=== PATIENT | male | born 1955 | race Caucasian/White ===

== ENCOUNTER 2017-11-12 13:21 | Inpatient (IN) | payer OTHER ==
[~2017-11-12] VITALS: Ht 177.8 cm; Wt 117.0 kg
[~2017-11-12 13:21] MED LIST: AZITHROMYCIN250 MG; BENZONATATE100 MG; PROAIR HFA INH8.5 GM
[2017-11-12] MEDS ORDERED: EPINEPHRINE 0.3 MG/0.3 ML PEN.INJCTR SC STA (13:30)
[2017-11-12] MEDS ORDERED: SODIUM CHLORIDE 0.9% 1000ML 1,000 ML IV STA (13:30)
[2017-11-12] MEDS ORDERED: IPRATROPIUM BROMIDE 0.02% 2.5 ML NEB NEB ONE (13:30)
[2017-11-12] MEDS ORDERED: ALBUTEROL SULF 0.083% NEB SOLN 3 ML NEB NEB STA (13:30)
[2017-11-12] MEDS ORDERED: DEXAMETHASONE SOD PHOS 10 MG/1 ML VIAL IV ONE (13:30)
[2017-11-12] MEDS ORDERED: FAMOTIDINE 20 MG/2 ML VIAL IV STA (13:30)
[2017-11-12] MEDS ORDERED: DIPHENHYDRAMINE HCL INJ 50 MG/ML VIAL IV ONE ×2 (13:30→14:15)
[2017-11-12] MEDS ORDERED: METHYLPREDNISOLONE SOD SUCC 125 MG/2ML VIAL IV ONE (13:30)
[2017-11-12] MEDS ORDERED: DIPHENHYDRAMINE HCL INJ 1 ML ONE (13:40)
[2017-11-12] MEDS ORDERED: METHYLPREDNISOLONE SOD SUCC 125 MG/2ML VIAL ONE (13:40)
[2017-11-12] MEDS ORDERED: EPINEPHRINE HCL INJ 1 MG/ML AMP ONE (13:40)
[2017-11-12] MEDS ORDERED: FAMOTIDINE 20 MG/2 ML VIAL IV ONE (13:41)
[2017-11-12] MEDS ORDERED: SODIUM CHLORIDE 0.9% 1000ML 1,000 ML ONE (13:42)
[2017-11-12] MEDS ORDERED: DIGOXIN250 MCG PO (14:11)
[2017-11-12] MEDS ORDERED: FUROSEMIDE40 MG PO (14:11)
[2017-11-12] MEDS ORDERED: SPIRONOLACTONE25 MG PO (14:11)
[2017-11-12] MEDS ORDERED: GLIMEPIRIDE4 MG PO (14:11)
[2017-11-12] MEDS ORDERED: METFORMIN HCL500 MG PO (14:11)
[2017-11-12] MEDS ORDERED: ATENOLOL50 MG PO (14:11)
[2017-11-12] MEDS ORDERED: SIMVASTATIN40 MG PO (14:11)
[2017-11-12] MEDS ORDERED: LISINOPRIL2.5 MG PO (14:11)
[2017-11-12] MEDS ORDERED: DIPHENHYDRAMINE HCL INJ 50 MG/ML VIAL IV PRN (14:45)
[2017-11-12] MEDS ORDERED: ONDANSETRON HCL INJ 2 MG/ML VIAL IV PRN (14:45)
[2017-11-12] MEDS ORDERED: DEXTROSE 50% SYRINGE 50 ML IV PRN (14:45)
[2017-11-12] MEDS ORDERED: IPRATROPIUM BROMIDE 0.02% 2.5 ML NEB NEB PRN (14:45)
--- NOTE | 2017-11-12 14:48 | Diagnostic Imaging Report ---
PROCEDURE: A single AP view of the chest. COMPARISON: 09/09/13 INDICATIONS: TONGUE SWELLING FINDINGS: Lines/tubes: None. Lungs: Limited by body habitus. The lungs are well inflated. Left mid to lower lung field opacification. Pleura: There is no pneumothorax. Heart and mediastinum: Enlarged cardiac silhouette. Bones: No acute bony abnormality. IMPRESSION: Left mid to lower lung field opacification, representing effusion and/or pneumonia. Dictated by: Toro Emerson M.D. on 11/12/2017 at 14:47 Electronically approved by: Toro Emerson M.D. on 11/12/2017 at 14:47
[2017-11-12 15:48] LABS: BASOPHILS # (AUTO) 0.1 (0.0-0.1); BASOPHILS % 0.7 % (0.0-1.0); EOSINOPHILS # (AUTO) 0.1 (0.0-0.4); EOSINOPHILS % 1.5 % (0.0-6.0); HEMATOCRIT 38.4 % (38.2-49.6); HEMOGLOBIN 12.9 g/dL (14.0-18.0); LYMPHOCYTES # (AUTO) 0.9 (1.0-3.2); LYMPHOCYTES % 13.2 % (18.0-39.1); MEAN CORPUSCULAR HEMOGLOBIN 33.2 pg (28-32); MEAN CORPUSCULAR HGB CONC 33.6 g/dL (31-35); MEAN CORPUSCULAR VOLUME 98.7 fL (81-99); MONOCYTES # (AUTO) 0.9 (0.2-0.8); MONOCYTES % 12.6 % (4.4-11.3); NEUTROPHILS # (AUTO) 5.1 (2.1-6.9); NEUTROPHILS % 71.3 % (38.7-80.0); PLATELET COUNT 144 x10e3/uL (140-360); RED BLOOD COUNT 3.89 x10e6/uL (4.3-5.7); RED CELL DISTRIBUTION WIDTH 12.8 % (11.7-14.4)
[2017-11-12 16:01] LABS: ANION GAP 22.4 mmol/L (8-16); CALCIUM 10.4 mg/dL (8.4-10.2); CREATININE, SERUM 2.34 mg/dL (0.72-1.25)
[2017-11-12 16:06] LABS: POTASSIUM 5.4 mmol/L (3.5-5.1)
[2017-11-12 16:07] LABS: CREATINE KINASE MB 10.1 ng/mL (0-5.0)
[2017-11-12] MEDS: SODIUM CHLORIDE 0.9% 1000ML 1,000 ML IV SCH (16:12)
--- OUTSIDE RECORDS SUMMARY | 2017-11-12 16:32 | XMS REPORT ---
Author [facility] Address Unknown Phone Unavailable Care Team Providers Care Wind Farm Designer Name Role Phone COCO SALO Unavailable Unavailable Problems This patient has no known problems. Allergies, Adverse Reactions, Alerts This patient has no known allergies or adverse reactions. Medications This patient has no known medications. Results Test Description Test Time Test Comments Text Results Atomic Results Result Comments CHEST SINGLE (PORTABLE) [place] [id number] Patient Name: YULISA PURI MR #: [id number] : 1955 Age/Sex: 61/M Req #: [id number] Adm Physician: Ordered by: SALO SEPULVEDA MD, MD Report #: [id number] Location: ER Room/Bed: Procedure: [id number] DX/CHEST SINGLE (PORTABLE) Exam Date: 11/12/17 Exam Time: 1415 REPORT STATUS: Signed PROCEDURE: A single AP view of the chest. COMPARISON: 09/09/13 INDICATIONS: TONGUE SWELLING FINDINGS: Lines/tubes: None. Lungs: Limited by body habitus. The lungs are well inflated. Left mid to lower lung field opacification. Pleura: There is no pneumothorax. Heart and mediastinum: Enlarged cardiac silhouette. Bones: No acute bony abnormality. IMPRESSION: Left mid to lower lung field opacification , representing effusion and/or pneumonia. Dictated by: Toro Emerson M.D. on 11/12/2017 at 14:47 Electronically approved by: Toro Emerson M.D. on 11/12/2017 at 14:47 Dictated By: TORO EMERSON MD [id number] Transcribed By: TIFF on 11/12/17 144 COPY TO: SALO SEPULVEDA
[2017-11-12] MEDS ORDERED: SOD POLYSTYRENE SULFONATE SUSP 15 GM/60 ML BTL PO ONE ×2 (16:45→20:00)
[2017-11-12] MEDS ORDERED: DEXAMETHASONE SOD PHOS INJ 4 MG/ML VIAL IV SCH (17:00)
[2017-11-12] MEDS ORDERED: METHYLPREDNISOLONE SOD SUCC 125 MG/2ML VIAL IV SCH ×2 (18:00)
[2017-11-12] MEDS ORDERED: ENOXAPARIN SOD INJ 40 MG/0.4 ML SYR SC SCH (18:00)
[2017-11-12] MEDS ORDERED: METHYLPREDNISOLONE SOD SUCC 40 MG/ML VIAL IV SCH (18:00)
[2017-11-12] MEDS ORDERED: DIPHENHYDRAMINE HCL 25 MG CAP PO SCH (18:00)
--- NOTE | 2017-11-12 18:13 | History and Physical ---
A patient of [facility] with a history of hypertension, diabetes, chronic atrial fibrillation, venous insufficiency, obstructive sleep apnea treated in the past surgically with success. He had swollen tongue this morning beginning with half the tongue approximate 11 o'clock after taking lisinopril. He has a history of hypertension, venous stasis, chronic kidney disease, atrial fibrillation. No history of heart failure. He had uvulopalatopharyngoplasty. Nonsmoker, no alcohol. 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 IS NOW KNOWN TO BE ALLERGIC TO LISINOPRIL AND OTHER SHERIN INHIBITORS. Routine medications include aspirin, atenolol, digoxin, Lasix, Amaryl, lisinopril, metformin. NOTED SWELLING OF THE TONGUE AND SPITTING UP LARGE QUANTITIES OF SALIVA. He is now improved after Benadryl and steroids and Pepcid. Denies dyspnea. He has a history of hypertension. Denies GI problems. He has venous stasis of the lower extremities. He is diabetic, on oral medications. PHYSICAL EXAMINATION GENERAL: He is a well-developed, bald white male, feeling much better. VITAL SIGNS: Blood pressure 151/63, pulse 47 and irregular, respirations 16, afebrile. HEAD: Tongue is swollen but improved. LUNGS: Clear. HEART: Irregular rhythm. ABDOMEN: Nontender. EXTREMITIES: Stasis changes. Chest x-ray suggests left lower lobe effusion which is likely to be a scar. He has had similar findings in 2013. Will request 2-view chest x-ray, a renal opinion due to elevated creatinine. Discontinue lisinopril, ask Pharmacy to instruct with regard to avoidance of SHERIN inhibitors. Decrease corticosteroids. Monitor overnight. Thank you for this kind referral. Job#: [id number] CAROLYN
[2017-11-12] MEDS: INSULIN REGULAR, HUMAN 100 UNIT/1 ML 3ML VIAL SQ SCH ×2 (18:30→21:45)
[2017-11-12] MEDS ORDERED: ASPIRIN 81 MG CHEW TAB PO ONE (18:30)
[2017-11-12 19:24] LABS: ALBUMIN 4.1 g/dL (3.5-5.0); ALBUMIN/GLOBULIN RATIO 1.1 (0.8-2.0); ANION GAP 20.6 mmol/L (8-16); CALCIUM 9.7 mg/dL (8.4-10.2); CREATININE, SERUM 2.39 mg/dL (0.72-1.25)
[2017-11-12 19:27] LABS: POTASSIUM 6.6 mmol/L (3.5-5.1)
[2017-11-12 19:30] LABS: CREATINE KINASE MB 7.3 ng/mL (0-5.0)
[2017-11-12] MEDS ORDERED: SODIUM BICARBONATE 8.4% INJ 50 ML SYR IV STA (19:34)
[2017-11-12] MEDS ORDERED: DEXTROSE 50% SYRINGE 50 ML IV ONE (20:00)
[2017-11-12] MEDS ORDERED: INSULIN REGULAR, HUMAN 100 UNIT/1 ML 3ML VIAL IV ONE (20:00)
[2017-11-12] MEDS ORDERED: CALCIUM GLUCONATE 10% INJ 4.65 MEQ in SODIUM CHLORIDE 0.9% 50ML 50 ML IV ONE (20:00)
[2017-11-12] MEDS ORDERED: ALBUTEROL SULF 0.083% NEB SOLN 3 ML NEB NEB ONE (20:00)
[2017-11-12] MEDS: DIPHENHYDRAMINE HCL 25 MG CAP PO SCH (20:00)
[2017-11-12] MEDS: METHYLPREDNISOLONE SOD SUCC 40 MG/ML VIAL IV SCH (20:00)
[2017-11-12] MEDS ORDERED: LACTULOSE SYRUP 20 GM/30 ML UDC PO ONE (20:45)
[2017-11-12 20:59] LABS: FREE THYROXINE INDEX 1.8702 (1.4-3.8); THYROID STIMULATING HORMONE 1.517 uIU/mL (0.350-4.940)
[2017-11-12 21:01] LABS: CALCIUM 9.8 mg/dL (8.4-10.2); CREATININE, SERUM 2.42 mg/dL (0.72-1.25)
[2017-11-12 21:15] LABS: ALBUMIN/GLOBULIN RATIO 1.1 (0.8-2.0)
[2017-11-12] MEDS: SOD POLYSTYRENE SULFONATE SUSP 15 GM/60 ML BTL PO SCH (23:13)
[2017-11-13] VITALS (29 sets, daily range): BP systolic 104–178; BP diastolic 36–114
[2017-11-13] MEDS: SODIUM CHLORIDE 0.9% 1000ML 1,000 ML IV SCH ×3 (00:45→17:25)
[2017-11-13 02:19] LABS: INR 1.27; PROTHROMBIN TIME 14.9 seconds (11.9-14.5)
[2017-11-13 02:20] LABS: PARTIAL THROMBOPLASTIN TIME 31.3 seconds (23.8-35.5)
[2017-11-13] MEDS: ALBUTEROL SULF 0.083% NEB SOLN 3 ML NEB NEB SCH ×4 (03:10→19:24)
--- NOTE | 2017-11-13 04:48 | Diagnostic Imaging Report ---
CHEST 2 VIEWS, Technique: CHEST 2 VIEWS Comparison: 11/12/2017 Clinical history: Effusion DISCUSSION: See impression. Motion artifact on lateral view. IMPRESSION: 1. Stable mildly enlarged cardiomediastinal silhouette. 2. Stable small loculated left pleural effusion with rounded opacity which could reflect atelectasis or consolidation. Signed by: Dr Blossom Capellan MD on 11/13/2017 4:45 AM
--- NOTE | 2017-11-13 05:00 | Consultation ---
DATE OF CONSULTATION: November 13, 2017 This is a 61-year-old white gentleman with underlying history of cardiac issues, hypertension, who is followed by Dr. Oviedo and Dr. Troncoso, presented with swelling of his tongue. He denies taking any new medications or eating any shellfish of that nature. He was brought here to the emergency room and found to have significant swelling of the tongue with no respiratory compromise. Was given appropriate medications for the angioedema. Was found to have high potassium. I discussed with Dr. Jorgito Faulkner. Appropriate medications for hyperkalemia was instituted. Repeat potassium was elevated, which is why initial plans were to dialyze the patient. Then repeat potassium came back at 5. He is comfortable laying supine. Swelling of his tongue is remarkably better he claims. ALLERGIES: HE IS APPARENTLY ALLERGIC TO SHERIN INHIBITORS, LISINOPRIL, BUT I BELIEVE THIS IS A NEW ALLERGY. HE WAS ON SHERIN INHIBITORS OF ALDACTONE AND DIGOXIN AT HOME. Here laboratory tests shows abnormal kidney function. Patient denies prior history of any kidney insufficiency, kidney stones or prostate tissues. His labs show a white count of 7.14, hemoglobin 12.9. Creatinine 2.42. Blood sugar is elevated at 403. BNP 103. REVIEW OF SYSTEMS: Positive for cough with phlegm, greenish colored phlegm. Denies fever, chills or chest pains. No nausea or vomiting. SOCIAL HISTORY: Does not smoke or drink. PAST MEDICAL HISTORY: Type 2 diabetes. He also follows with Dr. Troncoso for his cardiac issues. His digoxin level was 2.64. PHYSICAL EXAMINATION GENERAL: Awake, alert and sitting up in no apparent distress. VITALS: Blood pressure 178/90, pulse rate 79, afebrile, respiratory rate 17. HEAD AND NECK: Cornea clear. Mucosa dry. Oral mucosa shows no swelling of the tongue. Neck veins flat. No neck edema noted. No stridor. Patient is very comfortable. LUNGS: Breath sounds are relatively clear. HEART: S1 and S2 audible. ABDOMEN: Otherwise, soft and nontender. LOWER EXTREMITY EXAMINATION: Shows no edema. IMPRESSION AND PLAN 1. Type 2 diabetes. 2. Acute kidney injury. 3. Hyperkalemia. 4. Angioedema of the tongue. Laboratory tests pending. Overall improved with measures taken. Will do a renal workup. Discuss with primary care physician. Digoxin held. Will repeat levels. So far monitor shows no significant electrical issues on ECG. Job#: [id number] RI
[2017-11-13] MEDS: METHYLPREDNISOLONE SOD SUCC 40 MG/ML VIAL IV SCH ×4 (05:42→17:31)
[2017-11-13] MEDS: DIPHENHYDRAMINE HCL 25 MG CAP PO SCH ×4 (05:42→17:31)
[2017-11-13] MEDS: SOD POLYSTYRENE SULFONATE SUSP 15 GM/60 ML BTL PO SCH ×3 (05:45→22:06)
[2017-11-13 06:15] LABS: BASOPHILS % 0.2 % (0.0-1.0); HEMATOCRIT 34.4 % (38.2-49.6); HEMOGLOBIN 11.3 g/dL (14.0-18.0); LYMPHOCYTES # (AUTO) 0.3 (1.0-3.2); LYMPHOCYTES % 4.7 % (18.0-39.1); MEAN CORPUSCULAR HEMOGLOBIN 32.9 pg (28-32); MEAN CORPUSCULAR HGB CONC 32.8 g/dL (31-35); MEAN CORPUSCULAR VOLUME 100.3 fL (81-99); MONOCYTES # (AUTO) 0.1 (0.2-0.8); MONOCYTES % 1.4 % (4.4-11.3); NEUTROPHILS # (AUTO) 5.9 (2.1-6.9); NEUTROPHILS % 92.9 % (38.7-80.0); PLATELET COUNT 109 x10e3/uL (140-360); RED BLOOD COUNT 3.43 x10e6/uL (4.3-5.7); RED CELL DISTRIBUTION WIDTH 12.6 % (11.7-14.4)
[2017-11-13 06:54] LABS: ALBUMIN 3.7 g/dL (3.5-5.0); CALCIUM 9.5 mg/dL (8.4-10.2); CHOL/HDL RATIO 2.4 (3.9-4.7); CREATININE, SERUM 2.2 mg/dL (0.72-1.25); MAGNESIUM 1.7 MG/DL (1.3-2.1); PHOSPHORUS 2.6 MG/DL (2.3-4.7)
[2017-11-13] MEDS: INSULIN REGULAR, HUMAN 100 UNIT/1 ML 3ML VIAL SQ SCH ×4 (07:30→20:32)
[2017-11-13] MEDS: FAMOTIDINE 20 MG TAB PO SCH ×2 (07:30→16:30)
[2017-11-13] MEDS: GLIMEPIRIDE 2 MG TAB PO SCH ×2 (07:46→17:00)
[2017-11-13] MEDS ORDERED: SOD POLYSTYRENE SULFONATE SUSP 15 GM/60 ML BTL PO SCH (08:04)
[2017-11-13] MEDS ORDERED: DEXTROSE 50% SYRINGE 50 ML IV SCH (08:04)
[2017-11-13] MEDS ORDERED: LACTULOSE SYRUP 20 GM/30 ML UDC PO SCH (08:15)
[2017-11-13] MEDS ORDERED: INSULIN REGULAR, HUMAN 100 UNIT/1 ML 3ML VIAL SQ SCH (08:15)
[2017-11-13] MEDS ORDERED: DEXTROSE 50% SYRINGE 50 ML IV ONE (08:17)
[2017-11-13] MEDS: AMLODIPINE BESYLATE 5 MG TAB PO SCH (09:00)
[2017-11-13] MEDS ORDERED: ATENOLOL 50 MG TAB PO SCH (09:00)
[2017-11-13] MEDS: ENOXAPARIN SOD INJ 60 MG/0.6 ML SYR SC SCH ×2 (09:00→20:37)
[2017-11-13] MEDS ORDERED: ENOXAPARIN SOD INJ 40 MG/0.4 ML SYR SC SCH (09:00)
[2017-11-13] MEDS ORDERED: FUROSEMIDE 40 MG TAB PO SCH (09:00)
[2017-11-13] MEDS ORDERED: NON-FORMULARY MEDICATION (Glimepiride 4 MG) PO SCH (09:00)
[2017-11-13 10:13] LABS: ANISOCYTOSIS SLIGHT; LYMPHOCYTES % (MANUAL) 7 % (19-48); MONOCYTES % (MANUAL) 2 % (3.4-9.0); NEUTROPHILS % (MANUAL) 91 % (40-74); PLATELET ESTIMATE SLIGHTLY DECREASED; PLATELET MORPHOLOGY COMMENT NORMAL; RBC MORPHOLOGY COMMENT NORMAL
--- NOTE | 2017-11-13 11:34 | Diagnostic Imaging Report ---
EXAM: Renal Ultrasound INDICATION: \S\reese COMPARISON: None TECHNIQUE: Transverse and longitudinal images of the kidneys and bladder were obtained. FINDINGS: Right Kidney: Size: 12.8 x 6.1 x 5.8 cm Echogenicity: Normal Parenchymal thickness: Normal Collecting system: No hydronephrosis Stones: None Cyst/Mass: None Left Kidney: Size: 12.0 x 5.5 x 5.3 cm Echogenicity: Heterogeneous with striated appearance Parenchymal thickness: Thin Collecting system: Moderate hydronephrosis and moderate hydroureter Stones: 1.1 x 0.6 x 0.7 cm echogenic area in the lower pole without shadowing. Cyst/Mass: None Bladder: Decompressed. Right ureteral jet is present. Left ureteral jet is not visualized. Prostate: Not visualized. IMPRESSION: 1. Moderate left hydronephrosis and hydroureter likely represents a distal ureteral stone. No left ureteral jet is visualized in the bladder, indicating obstruction. 2. 1.1 cm echogenic foci in the lower pole of the left kidney, likely another stone. 3. Striated appearance of the left kidney. This may be related to the hydronephrosis. However, superimposed pyelonephritis cannot be excluded. Signed by: Dr. Martinez Tian M.D. on 11/13/2017 11:31 AM
[2017-11-13 14:53] LABS: ANION GAP 17.9 mmol/L (8-16); CALCIUM 9.1 mg/dL (8.4-10.2); CREATININE, SERUM 2.26 mg/dL (0.72-1.25); POTASSIUM 3.9 mmol/L (3.5-5.1)
[2017-11-13 15:03] LABS: MAGNESIUM 1.4 MG/DL (1.3-2.1); PHOSPHORUS 2.6 MG/DL (2.3-4.7)
--- NOTE | 2017-11-13 15:45 | Consultation ---
DATE OF CONSULTATION: CARDIOLOGY CONSULTATION NOTE ATTENDING PHYSICIAN: Dr. Jerry Braga CLINICAL HISTORY: This is a 61-year-old white man with history of hypertension, diabetes, chronic atrial fibrillation, venous insufficiency, COPD, admitted and seen in the emergency room because of lisinopril reaction with tongue swelling and because of bradycardia related to medications including digoxin and atenolol, as well as hyperkalemia with new onset of acute kidney injury. This patient has seen a die cutter apprentice in [place], [place] in the distant past. He was given 2 different diuretics including spironolactone for 20 years and furosemide for 15 years, the reason for these were apparently because of venous insufficiency rather than congestive heart failure. An echocardiogram was done in 2013 showing ejection fraction 52%. There is no previous history of chronic kidney disease. There is history of hypertension for which he took lisinopril for many years, apparently he has not had this reaction until now. The patient was taking Coumadin in the past for atrial fibrillation, but this was discontinued for unclear reasons. He does not have any significant bleeding issues. MEDICATIONS AT HOME: Includes: 1. Digoxin 0.25 mg every day. 2. Lisinopril 2.5 mg every day. 3. Metformin 500 mg b.i.d. 4. Spironolactone 25 mg every day. 5. Atenolol 50 mg every day. 6. Lasix 40 mg every day. 7. Glimepiride 4 mg p.o. b.i.d. 8. Simvastatin 40 mg p.o. every day. 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 was in the . He rarely drinks. He is retired for the past year. REVIEW OF SYSTEMS: Noncontributory. PHYSICAL EXAMINATION: VITAL SIGNS: He is somewhat overweight. Vital signs are stable otherwise. Heart rate is irregularly irregular approximately 40 to 50 beats per minute. CARDIAC: S1, S2 were irregularly irregular with variable intensive S1. LUNGS: Clear. ABDOMEN: Soft. Bowel sounds were present. EXTREMITIES: Showed stasis changes. LABORATORY STUDIES: The chest x-ray showed left lower lobe effusion. EKG showed atrial fibrillation, possible old anterior wall myocardial infarction, right axis deviation, nonspecific ST changes. The initial potassium was 5.0, repeat was 6.6. Sodium is 133, bicarb is 24, BUN is 47, creatinine 2.4, glucose is 403. IMPRESSION: 1. Possible allergic reaction to lisinopril with swelling of his tongue, although the patient has been taking lisinopril for many, many years. 2. Severe bradycardia, probably due to combination of digoxin toxicity (2.4), atenolol, as well as hyperkalemia. 3. Chronic kidney disease with acute kidney injury with volume depletion due to double diuretics. 4. Venous insufficiency, treated with 2 diuretics. 5. Volume depletion due to combination of diuretics. 6. Possible old anterior wall myocardial infarction by electrocardiogram, but echocardiogram in 2013 was read as negative, ejection fraction 52%. 7. Hyperkalemia due to combination of lisinopril and spironolactone as well as chronic and acute kidney disease. 8. Diabetes, poorly controlled. 9. Hyponatremia, possibly also due to lisinopril, spironolactone, and diuretics. 10. Left lower lobe effusion. 11. Digoxin toxicity. RECOMMENDATION: Discontinue atenolol, digoxin, diuretics. Fluid replacement, correct hyperkalemia. Consider for the bradycardia. Repeat echocardiogram. Hopefully, we can avoid dialysis. Job#: [id number] cc:JERRY BRAGA MD DR.
[2017-11-13 20:55] LABS: CREATINE KINASE MB 10.1 ng/mL (0-5.0)
[2017-11-13] MEDS ORDERED: SIMVASTATIN 40 MG TAB PO SCH (21:00)
[2017-11-14] VITALS (13 sets, daily range): BP systolic 107–165; BP diastolic 36–92
[2017-11-14] MEDS: ALBUTEROL SULF 0.083% NEB SOLN 3 ML NEB NEB SCH ×2 (02:50→07:00)
[2017-11-14] MEDS: SODIUM CHLORIDE 0.9% 1000ML 1,000 ML IV SCH (04:00)
[2017-11-14 06:21] LABS: HEMATOCRIT 32.8 % (38.2-49.6); HEMOGLOBIN 10.8 g/dL (14.0-18.0); LYMPHOCYTES # (AUTO) 0.2 (1.0-3.2); LYMPHOCYTES % 3.3 % (18.0-39.1); MEAN CORPUSCULAR HEMOGLOBIN 33.2 pg (28-32); MEAN CORPUSCULAR HGB CONC 32.9 g/dL (31-35); MEAN CORPUSCULAR VOLUME 100.9 fL (81-99); MONOCYTES # (AUTO) 0.2 (0.2-0.8); MONOCYTES % 2.5 % (4.4-11.3); NEUTROPHILS # (AUTO) 6.3 (2.1-6.9); NEUTROPHILS % 93.5 % (38.7-80.0); PLATELET COUNT 95 x10e3/uL (140-360); RED BLOOD COUNT 3.25 x10e6/uL (4.3-5.7); RED CELL DISTRIBUTION WIDTH 12.5 % (11.7-14.4)
[2017-11-14] MEDS: DIPHENHYDRAMINE HCL 25 MG CAP PO SCH ×3 (06:36→12:20)
[2017-11-14] MEDS: SOD POLYSTYRENE SULFONATE SUSP 15 GM/60 ML BTL PO SCH ×2 (06:36→13:09)
[2017-11-14] MEDS: METHYLPREDNISOLONE SOD SUCC 40 MG/ML VIAL IV SCH ×3 (06:36→12:20)
[2017-11-14 06:46] LABS: ALBUMIN 3.4 g/dL (3.5-5.0); ALBUMIN/GLOBULIN RATIO 1.2 (0.8-2.0); ANION GAP 16.9 mmol/L (8-16); CALCIUM 8.7 mg/dL (8.4-10.2); CREATININE, SERUM 1.98 mg/dL (0.72-1.25); POTASSIUM 3.9 mmol/L (3.5-5.1)
[2017-11-14] MEDS: INSULIN REGULAR, HUMAN 100 UNIT/1 ML 3ML VIAL SQ SCH ×2 (07:08→12:20)
[2017-11-14] MEDS: FAMOTIDINE 20 MG TAB PO SCH (07:25)
[2017-11-14] MEDS: GLIMEPIRIDE 2 MG TAB PO SCH (07:32)
[2017-11-14] MEDS: ENOXAPARIN SOD INJ 60 MG/0.6 ML SYR SC SCH (09:00)
[2017-11-14] MEDS: AMLODIPINE BESYLATE 5 MG TAB PO SCH (09:00)
[2017-11-14 12:52] LABS: LYMPHOCYTES % (MANUAL) 4 % (19-48); MONOCYTES % (MANUAL) 1 % (3.4-9.0); NEUTROPHILS % (MANUAL) 95 % (40-74); PLATELET ESTIMATE SLIGHTLY DECREASED; PLATELET MORPHOLOGY COMMENT NORMAL; RBC MORPHOLOGY COMMENT NORMAL
[2017-11-14] MEDS ORDERED: RIVAROXABAN 20 MG TABLET PO SCH (14:15)
[2017-11-14] MEDS ORDERED: XARELTO20 MG PO (14:21)
--- NOTE | 2017-11-14 15:28 | Cardiology Report ---
DATE OF STUDY: ECHOCARDIOGRAM M-MODE: Dilated left atrium. Left ventricular hypertrophy. Normal left ventricular contractility. Normal mitral and aortic valves. No pericardial effusion. SECTOR SCAN: Dilated left and right atrium. Mild left ventricular hypertrophy. Normal contractility. Aortic sclerosis of the mitral valve annulus. Normal tricuspid valves. No pericardial effusion. CARDIAC DOPPLER STUDY WITH COLOR: One plus aortic regurgitation. Trace mitral and tricuspid regurgitation. One plus pulmonic regurgitation. CONCLUSIONS 1. Aortic sclerosis with mild aortic regurgitation. 2. Trace mitral regurgitation with dilated left atrium. 3. Sclerosis of the mitral valve annulus. 4. Trace tricuspid regurgitation with mild pulmonic regurgitation with dilated right atrium without significant pulmonary hypertension. Pulmonary artery systolic pressure estimated at 33 mmHg. 5. Left ventricular hypertrophy with ejection fraction of approximately 55%. Job#: [id number] RI cc:LIU BRAGA MD
[2017-11-14] MEDS ORDERED: PREDNISONE20 MG PO ×2 (17:12→17:14)
[2017-11-14] MEDS ORDERED: BENADRYL25 M1 PO (17:17)
[2017-11-15] MEDS ORDERED: RIVAROXABAN 15 MG TABLET PO SCH (09:00)
--- NOTE | 2017-11-15 20:52 | Discharge Summary ---
FINAL DIAGNOSES 1. Angioedema. 2. Hyperkalemia due to medications, spironolactone and lisinopril. 3. Atrial fibrillation. 4. Acute kidney injury. 5. Type-2 diabetes mellitus. ADMISSION HISTORY AND HOSPITAL COURSE: Mr. Wong is a 61-year-old male, who presented to the emergency room with the complaint of swelling of the tongue. Patient was diagnosed with angioedema. Lisinopril was stopped. Patient started feeling better. After it was stopped, he was initially observed in ICU. Cardiology and nephrology were consulted as patient was hyperkalemic on admission as well and also had renal failure with creatinine of 2.34, which improved. Nephrology was consulted. Did recommend patient can be discharged home. Cardiology also cleared the patient. I have discontinued the spironolactone, Lasix, lisinopril, and metformin. He will follow up with Dr. Oviedo in 2-3 weeks. DISCHARGE MEDICATION LIST: Reviewed. MARLY CHAVEZ MD Job#: [id number] CQ
== END 2017-11-14 17:46 | disposition home or self-care (01) | DRG 916 ==
LOC: ER 13:21 → ERHOLD 16:29 → OBSVTOIN 20:12 → ICU 11-13 02:15 → MED/SURG 11-14 10:21
PROVIDERS: ADMIT Internal Medicine Pulmonary Disease; ATTEND Internal Medicine Pulmonary Disease
DX: T78.3XXA Angioneurotic edema, initial encounter (principal); E11.22 Type 2 diabetes mellitus with diabetic chronic kidney disease; N17.9 Acute kidney failure, unspecified; E11.65 Type 2 diabetes mellitus with hyperglycemia; N18.3 Chronic kidney disease, stage 3 (moderate); E87.1 Hypo-osmolality and hyponatremia; T46.4X5A Adverse effect of angiotensin-converting-enzyme inhibitors, initial encounter; T50.0X5A Adverse effect of mineralocorticoids and their antagonists, initial encounter; Y92.009 Unspecified place in unspecified non-institutional (private) residence as the place of occurrence of the external cause; E87.5 Hyperkalemia; I12.9 Hypertensive chronic kidney disease with stage 1 through stage 4 chronic kidney disease, or unspecified chronic kidney disease; I48.2 Chronic atrial fibrillation; Z79.01 Long term (current) use of anticoagulants; J44.9 Chronic obstructive pulmonary disease, unspecified; Z79.52 Long term (current) use of systemic steroids; I87.2 Venous insufficiency (chronic) (peripheral); E66.3 Overweight; Z68.37 Body mass index [BMI] 37.0-37.9, adult; T46.0X1A Poisoning by cardiac-stimulant glycosides and drugs of similar action, accidental (unintentional), initial encounter; R00.1 Bradycardia, unspecified; E78.5 Hyperlipidemia, unspecified
CPT/HCPCS: 36415; 71045; 71046; 76770; 80048; 80053; 80061; 80162; 82550; 82553; 82948; 83615; 83735; 83880; 84100; 84436; 84443; 84479; 84484; 85025; 85610; 85730; 93005; 93306; 94640; 96361; 96372; 99285; J0171; J0610; J1100; J1200; J1650; J2920; J2930; J7030; J7799

== ENCOUNTER 2018-01-01 14:33 | Emergency (ER) | payer OTHER ==
[~2018-01-01] VITALS: Ht 177.8 cm; Wt 117.0 kg
[~2018-01-01 14:33] MED LIST changes: +ATENOLOL50 MG PO; +BENADRYL25 M1 PO; +DIGOXIN250 MCG PO; +FUROSEMIDE40 MG PO; +GLIMEPIRIDE4 MG PO; +LISINOPRIL2.5 MG PO; +METFORMIN HCL500 MG PO; +PREDNISONE20 MG PO; +SIMVASTATIN40 MG PO; +SPIRONOLACTONE25 MG PO; +XARELTO20 MG PO
--- OUTSIDE RECORDS SUMMARY | 2018-01-01 14:37 | XMS REPORT | Continuity of Care Document ---
Author Author [facility] Organization [facility] Address [address] [place] [address] Phone Unavailable Care Team Providers Care Dance Studio Manager Name Role Phone NO, PCP PCP Unavailable Insurance Providers Guarantor Chase Wong Address [address] [place] [address] Email [email or web address] Payer [facility] Policy Number [id number] Subscriber's Name Lisa Wong Relationship 01 Group Name RETIRED Effective Date 17 Advance Directives Directive Response Recorded Date/Time Does the patient have an advance directive? No 11/13/17 3:11am If yes, is advance directive on file with [facility]? No 11/13/17 3:11am If not on file with [facility] will patient provide a copy? No 11/13/17 3:11am Do you have a Directive to Physician? No 11/12/17 3:15pm Do you have a Medical Power of Electrical Lineman? No 11/12/17 3:15pm Do you have an out of hospital Do Not Resuscitate Order? No 11/12/17 3:15pm Do you have any special needs we should be aware of? No 11/12/17 3:15pm Do you have a support person here with you today? Yes 11/12/17 3:15pm Did patient receive Notice of Privacy Practices? Yes 11/12/17 3:15pm Did patient receive patient rights and responsibilities? Yes 11/12/17 3:15pm Problems Medical Problem Onset Date Status Angio-edema Unknown Digoxin toxicity Unknown Medications Current Home Medications Medication Dose Units Route Directions Days Qty Instructions Start Date Diphenhydramine Hcl (Benadryl) 25 Mg Capsule 25 Mg Oral Three Times A Day as needed for Itching Glimepiride 4 Mg Tablet 4 Mg Oral Twice A Day 180 Prednisone 20 Mg Tab 20 Mg Oral Daily Rivaroxaban (Xarelto) 20 Mg Tablet 15 Mg Oral Daily 30 Tab 11/14/17 Simvastatin 40 Mg Tablet 40 Mg Oral Daily 90 Past Home Medications Medication Directions Ordered Status Albuterol Sulfate (Proair Hfa Inhaler*) 8.5 Gm Inh, Discontinued Atenolol 50 Mg Tablet, 50 Mg Oral Daily Discontinued Azithromycin (Z-Pernell) 250 Mg Tablet, Discontinued Benzonatate 100 Mg Capsule, Discontinued Digoxin 250 Mcg Tablet, 0.25 Mg Oral Daily Discontinued Furosemide 40 Mg Tablet, 40 Mg Oral Daily Discontinued Lisinopril 2.5 Mg Tablet, 2.5 Mg Oral Daily Discontinued Metformin Hcl 500 Mg Tablet, 500 Mg Oral Twice A Day Discontinued Spironolactone 25 Mg Tablet, 25 Mg Oral Daily Discontinued Social History Social History Problem Response Recorded Date/Time Onset Date Status Hx Psychiatric Problems No 11/13/2017 3:11am Not Applicable Not Applicable Hx Eating Disorder No 09/09/2013 8:30pm Not Applicable Not Applicable Hx Substance Use Disorder No 09/09/2013 8:30pm Not Applicable Not Applicable Hx Depression No 09/09/2013 8:30pm Not Applicable Not Applicable Hx Alcohol Use No 09/09/2013 8:30pm Not Applicable Not Applicable Hx Substance Use Treatment No 09/09/2013 8:30pm Not Applicable Not Applicable Hx Physical Abuse No 09/09/2013 8:30pm Not Applicable Not Applicable Smoking Status Start Date Stop Date Never Smoker Hospital Discharge Instructions No hospital discharge instruction information available. Plan of Care Discharge Date 11/14/17 5:46pm Disposition HOME, SELF-CARE Instructions/Education Provided Diabetes and Diet Prescriptions See Medication Section Referrals YUMIKO (Pulmonary) Order Date: 2 Weeks Entered Date: 11/14/2017 5:24pm JUAN R (Cardiology) Order Date: 1 Week Entered Date: 11/14/2017 5:24pm Additional Instructions/Education DIABETIC DIET ACTIVITY TOLERATED NO ORANGES, BANANAS TAKE MEDICATION PRESCRIBED BMP ON 11/19 RETURN TO EMERGENCY ROOM FOR CHEST PAINS, Functional Status Query Response Date Recorded Assistive Devices None November 13, 2017 3:23am Ambulation Ability Standby Assistance November 13, 2017 3:23am Toileting Ability Minimum Assistance November 14, 2017 2:32pm Allergies, Adverse Reactions, Alerts Allergen Type Severity Reaction Status Last Updated Angiotensin-converting enzyme inhibitor Allergy Severe TONGUE SWELLING Active 11/12/17 Lisinopril Allergy Severe TONGUE SWELLING Active 11/12/17 Immunizations No immunization information available. Vital Signs Acute Vital Signs Vital Response Date/Time Temperature (Fahrenheit) 98.5 degrees F (97.6 - 99.5) 11/14/2017 12:00pm Pulse Pulse Rate (adult) 60 bpm (60 - 90) 11/14/2017 1:14pm Respiratory Rate 18 bpm (12 - 24) 11/14/2017 1:14pm Blood Pressure 165/74 mm Hg 11/14/2017 12:00pm Height 5 ft 10 in 11/12/2017 1:26pm Weight 258 lb 11/13/2017 3:11am Body Mass Index 37.0 kg/m^2 11/13/2017 3:11am Results Laboratory Results Test Name Result Units Flags Reference Collection Date/Time Result Date/ Time Comments White Blood Count 6.69 x10e3/uL 4.8-10.8 11/14/2017 5:55am 11/14/2017 6 :34am Red Blood Count 3.25 x10e6/uL L 4.3-5.7 11/14/2017 5:55am 11/14/2017 6: 34am Hemoglobin 10.8 g/dL L 14.0-18.0 11/14/2017 5:55am 11/14/2017 6:34am Hematocrit 32.8 % L 38.2-49.6 11/14/2017 5:55am 11/14/2017 6:34am Mean Corpuscular Volume 100.9 fL H 81-99 11/14/2017 5:55am 11/14/2017 6: 34am Mean Corpuscular Hemoglobin 33.2 pg H 28-32 11/14/2017 5:552017 6:34am Mean Corpuscular Hemoglobin Concent 32.9 g/dL 31-35 11/14/2017 5:11/14/2017 6:34am Red Cell Distribution Width 12.5 % 11.7-14.4 11/14/2017 5:552017 6:34am Platelet Count 95 x10e3/uL L 140-360 11/14/2017 5:11/14/2017 6: 34am Neutrophils (%) (Auto) 93.5 % H 38.7-80.0 11/14/2017 5:5511/14/2017 6 :34am Lymphocytes (%) (Auto) 3.3 % L 18.0-39.1 11/14/2017 5:11/14/2017 6: 34am Monocytes (%) (Auto) 2.5 % L 4.4-11.3 11/14/2017 5:11/14/2017 6: 34am Eosinophils (%) (Auto) 0.0 % 0.0-6.0 11/14/2017 5:11/14/2017 6: 34am Basophils (%) (Auto) 0.0 % 0.0-1.0 11/14/2017 5:11/14/2017 6:34am IM GRANULOCYTES % 0.7 % 0.0-1.0 11/14/2017 5:11/14/2017 6:34am Neutrophils # (Auto) 6.3 2.1-6.9 11/14/2017 5:11/14/2017 6:34am Lymphocytes # (Auto) 0.2 L 1.0-3.2 11/14/2017 5:11/14/2017 6: 34am Monocytes # (Auto) 0.2 0.2-0.8 11/14/2017 5:11/14/2017 6:34am Eosinophils # (Auto) 0.0 0.0-0.4 11/14/2017 5:5511/14/2017 6:34am Basophils # (Auto) 0.0 0.0-0.1 11/14/2017 5:5511/14/2017 6:34am Absolute Immature Granulocyte (auto 0.05 x10e3/uL 0-0.1 11/14/2017 5: 55am 11/14/2017 6:34am Differential Total Cells Counted 100 11/14/2017 5:55am 11/14/2017 12:52pm Neutrophils % (Manual) 95 % H 40-74 11/14/2017 5:55am 11/14/2017 12: 52pm Lymphocytes % (Manual) 4 % L 19-48 11/14/2017 5:55am 11/14/2017 12:52pm Monocytes % (Manual) 1 % L 3.4-9.0 11/14/2017 5:55am 11/14/2017 12:52pm Platelet Estimate SLIGHTLY DECREASED 11/14/2017 5:55am 11/14/2017 12:52pm Platelet Morphology Comment NORMAL 11/14/2017 5:55am 11/14/2017 12: 52pm Anisocytosis SLIGHT 11/13/2017 6:00am 11/13/2017 10:13am Red Cell Morphology Comment NORMAL 11/14/2017 5:55am 11/14/2017 12: 52pm Prothrombin Time 14.9 seconds H 11.9-14.5 11/13/2017 1:40am 11/13/2017 2 :26am Prothromb Time International Ratio 1.27 11/13/2017 1:40am 2017 2:26am Oral Anticoagulant Therapy INR Values: 1. Low Intensity Therapy 1.5 - 2.0 2. Moderate Intensity Therapy 2.0 - 3.0 3. High Intensity Therapy(1) 2.5 - 3.5 4. High Intensity Therapy(2) 3.0 - 4.0 5. Panic Value INR > 5.0 Activated Partial Thromboplast Time 31.3 seconds 23.8-35.5 11/13/2017 1: 40am 11/13/2017 2:26am Sodium Level 139 mmol/L 136-145 11/14/2017 5:55am 11/14/2017 6:46am Potassium Level 3.9 mmol/L 3.5-5.1 11/14/2017 5:55am 11/14/2017 6:46am Chloride Level 100 mmol/L 98-107 11/14/2017 5:55am 11/14/2017 6:46am Carbon Dioxide Level 26 mmol/L 22-29 11/14/2017 5:55am 11/14/2017 6: 46am Anion Gap 16.9 mmol/L H 8-16 11/14/2017 5:55am 11/14/2017 6:46am Blood Urea Nitrogen 45 mg/dL H 7-26 11/14/2017 5:55am 11/14/2017 6:46am Creatinine 1.98 mg/dL H 0.72-1.25 11/14/2017 5:55am 11/14/2017 6:46am BUN/Creatinine Ratio 23 6-25 11/14/2017 5:55am 11/14/2017 6:46am Estimat Glomerular Filtration Rate 35 ML/MIN L 60- 11/14/2017 5:55am 6:46am Ranges were taken from the National Kidney Disease Education Program and the National Kidney Foundation literature. Reference ranges: 60 or greater: Normal 16-59 (for 3 consecutive months): Chronic kidney disease 15 or less: Kidney failure Glucose Level 220 mg/dL H 74-118 11/14/2017 5:55am 11/14/2017 6:46am Calcium Level 8.7 mg/dL 8.4-10.2 11/14/2017 5:55am 11/14/2017 6:46am Bedside Glucose 322 mg/dL H 70-120 11/14/2017 11:00am 11/14/2017 12: 10pm Meter ID: [id number] Phosphorus Level 2.6 MG/DL 2.3-4.7 11/13/2017 1:33pm 11/13/2017 3:07pm Magnesium Level 1.4 MG/DL 1.3-2.1 11/13/2017 1:33pm 11/13/2017 3:07pm Total Bilirubin 1.4 mg/dL H 0.2-1.2 11/14/2017 5:55am 11/14/2017 6:46am Aspartate Amino Transf (AST/SGOT) 33 IU/L 5-34 11/14/2017 5:55am 2017 6:46am Alanine Aminotransferase (ALT/SGPT) 17 IU/L 0-55 11/14/2017 5:55am 6:46am Lactate Dehydrogenase 225 IU/L H 125-220 11/14/2017 UNK 11/14/2017 3: 29pm Total Protein 6.2 g/dL L 6.5-8.1 11/14/2017 5:55am 11/14/2017 6:46am Albumin 3.4 g/dL L 3.5-5.0 11/14/2017 5:55am 11/14/2017 6:46am Globulin 2.8 g/dL 2.3-3.5 11/14/2017 5:55am 11/14/2017 6:46am Albumin/Globulin Ratio 1.2 0.8-2.0 11/14/2017 5:55am 11/14/2017 6: 46am Alkaline Phosphatase 58 IU/L 40-150 11/14/2017 5:55am 11/14/2017 6: 46am Triglycerides Level 69 MG/DL 0-149 11/13/2017 6:00am 11/13/2017 6:57am Cholesterol Level 176 MD/DL 0-199 11/13/2017 6:00am 11/13/2017 6:57am Less than 200 mg/dL Low Risk 201 - 239 mg/dL Borderline Risk 240 mg/dl and greater High Risk LDL Cholesterol 90 MG/DL 60-130 11/13/2017 6:00am 11/13/2017 6:57am HDL Cholesterol 72 MG/DL H 40-60 11/13/2017 6:00am 11/13/2017 6:57am Cholesterol/HDL Ratio 2.4 L 3.9-4.7 11/13/2017 6:00am 11/13/2017 6: 57am B-Type Natriuretic Peptide 103.2 pg/mL H 0-100 11/12/2017 1:30pm 2017 4:21pm Creatine Kinase 525 IU/L H 30-200 11/13/2017 8:30pm 11/13/2017 8:49pm Creatine Kinase MB 10.10 ng/mL H 0-5.0 11/13/2017 8:30pm 11/13/2017 9: 03pm Troponin I 0.032 ng/mL 0-0.300 11/13/2017 8:30pm 11/13/2017 9:03pm Free Thyroxine Index 1.8702 1.4-3.8 11/12/2017 6:50pm 11/12/2017 9: 01pm Thyroxine (T4) 5.44 ug/dL 4.5-10.9 11/12/2017 6:50pm 11/12/2017 9:01pm Triiodothyronine (T3) Uptake 34.38 % 22.5-37.0 11/12/2017 6:50pm 2017 9:01pm Thyroid Stimulating Hormone (TSH) 1.517 uIU/mL 0.350-4.940 11/12/2017 6: 50pm 11/12/2017 9:01pm Digoxin Level 1.52 ng/mL 0.8-2.0 11/13/2017 1:33pm 11/13/2017 4:29pm Procedures Procedure Status Date Provider(s) X-ray of chest, two views Active 11/13/17 LIU BRAGA MD Ultrasound, renal Active 11/13/17 TAMELA AGUIAR Encounters Encounter Location Arrival/Admit Date Discharge/Depart Date Attending Provider Discharged Inpatient [facility] 11/12/17 8:12pm 11/14/17 5:46pm LIU BRAGA MD
[2018-01-01 15:37] LABS: BASOPHILS % 0.4 % (0.0-1.0); EOSINOPHILS % 0.4 % (0.0-6.0); HEMATOCRIT 27.6 % (38.2-49.6); HEMOGLOBIN 8.8 g/dL (14.0-18.0); LYMPHOCYTES # (AUTO) 0.4 (1.0-3.2); LYMPHOCYTES % 4.9 % (18.0-39.1); MEAN CORPUSCULAR HEMOGLOBIN 31.3 pg (28-32); MEAN CORPUSCULAR HGB CONC 31.9 g/dL (31-35); MEAN CORPUSCULAR VOLUME 98.2 fL (81-99); MONOCYTES # (AUTO) 0.5 (0.2-0.8); MONOCYTES % 6.5 % (4.4-11.3); NEUTROPHILS # (AUTO) 7.2 (2.1-6.9); NEUTROPHILS % 87.1 % (38.7-80.0); RED BLOOD COUNT 2.81 x10e6/uL (4.3-5.7); RED CELL DISTRIBUTION WIDTH 12.9 % (11.7-14.4)
[2018-01-01 15:38] LABS: PLATELET COUNT 94 x10e3/uL (140-360)
[2018-01-01 15:49] LABS: INR 2.19; PROTHROMBIN TIME 22.9 seconds (11.9-14.5)
[2018-01-01 15:50] LABS: PARTIAL THROMBOPLASTIN TIME 37.4 seconds (23.8-35.5)
[2018-01-01 15:56] LABS: ALANINE AMINOTRANSFERASE 25 IU/L (0-55); ALBUMIN 3.3 g/dL (3.5-5.0); ALBUMIN/GLOBULIN RATIO 1.4 (0.8-2.0); ALKALINE PHOSPHATASE 106 IU/L (40-150); ANION GAP 13.7 mmol/L (8-16); BLOOD UREA NITROGEN 12 mg/dL (7-26); BUN/CREATININE RATIO 11 (6-25); CALCIUM 9.1 mg/dL (8.4-10.2); CARBON DIOXIDE 30 mmol/L (22-29); CHLORIDE 101 mmol/L (98-107); CREATININE, SERUM 1.07 mg/dL (0.72-1.25); EST GLOMERULAR FILTRATION RATE > 60 ML/MIN (60-); GLUCOSE 66 mg/dL (74-118); POTASSIUM 3.7 mmol/L (3.5-5.1); SODIUM 141 mmol/L (136-145)
--- NOTE | 2018-01-01 16:00 | Diagnostic Imaging Report ---
PELVIS X-RAY - 1 VIEW HISTORY: \S\fall \S\[id number] \S\1535 \S\Y COMPARISON: None available. FINDINGS: Bones: No acute displaced fracture. Osseous alignment is within normal limits. Joints: The joint spaces are well-maintained. Soft tissues: The soft tissues appear unremarkable. IMPRESSION: No acute radiographic abnormality. Signed by: Dr. Yazmin Mims M.D. on 01/01/2018 3:56 PM
--- NOTE | 2018-01-01 16:01 | Diagnostic Imaging Report ---
LEFT FEMUR X-RAY - 4 VIEWS HISTORY: \S\fall \S\Y COMPARISON: None available. FINDINGS: Bones: No acute displaced fracture. Osseous alignment is within normal limits. Joints: The joint spaces are well-maintained. Soft tissues: Mild vascular calcifications. IMPRESSION: No acute radiographic abnormality. Signed by: Dr. Yazmin Mims M.D. on 01/01/2018 3:57 PM
[2018-01-01] MEDS ORDERED: IOPAMIDOL 370 MG/ML 200 ML INFUS..BTL INJ ONE (17:20)
[2018-01-01] MEDS ORDERED: SODIUM CHLORIDE 0.9% 50ML 50 ML ONE (17:20)
--- NOTE | 2018-01-01 17:47 | Diagnostic Imaging Report ---
ADDENDUM #1 Incidental finding: Calcific tendinopathy of the gluteus meliton insertion at the level of the posterior proximal femur. Signed by: Dr. Yazmin Mims M.D. on 01/04/2018 8:22 AM ORIGINAL REPORT Exam: CT scan of the LEFT Leg, WITHOUT injected contrast. TECHNIQUE: Standard departmental protocols were used. Sagittal and coronal reformatted images were obtained. IV CONTRAST: None COMPLICATIONS: None RADIATION DOSE: Total DLP: 684 mGy*cm Estimated effective dose: (DLP x 0.015 x size factor) mSv CTDIvol has been reviewed. It is below the limits set by the Radiation Protocol Committee (RPC). HISTORY: Status post fall, swelling in the left thigh COMPARISON: Left femur x-ray from 01/01/2018 FINDINGS: Bones: No fractures. Soft Tissues: Diffuse circumferential fat stranding surrounding the subcutaneous fat of the left lower extremity from the inguinal canal to the knee. There is also swelling of the biceps muscle. Small mildly hyperdense suprapatellar effusion measuring 19 Hounsfield units. Mild calcifications of the visualized femoral arteries. IMPRESSION: Small mildly hyperdense suprapatellar effusion and swelling of the quadriceps muscle in the upper thigh may relate to this trauma. No discrete hematoma within the muscles. Diffuse soft tissue swelling and on the subcutaneous fat of the left lower extremity. No acute fractures. Signed by: Dr. Yazmin Mims M.D. on 01/01/2018 5:43 PM
[2018-01-01] MEDS ORDERED: HYDROCODONE/APAP 5MG-325MG TAB PO ONE (18:30)
== END 2018-01-01 18:41 | disposition home or self-care (01) ==
LOC: ER 14:44
DX: S76.112A Strain of left quadriceps muscle, fascia and tendon, initial encounter (principal); S76.812A Strain of other specified muscles, fascia and tendons at thigh level, left thigh, initial encounter; W01.0XXA Fall on same level from slipping, tripping and stumbling without subsequent striking against object, initial encounter
CPT/HCPCS: 36415; 72170; 73552; 73701; 80053; 82948; 85025; 85610; 85730; 99284; Q9967

== ENCOUNTER 2018-03-23 11:20 | Inpatient (IN) | payer OTHER ==
[~2018-03-23] VITALS: Ht 177.8 cm; Wt 153.8 kg
[2018-03-23 12:52] LABS: BASOPHILS % 0.7 % (0.0-1.0); EOSINOPHILS # (AUTO) 0.3 (0.0-0.4); EOSINOPHILS % 5.9 % (0.0-6.0); HEMATOCRIT 32.1 % (38.2-49.6); HEMOGLOBIN 9.7 g/dL (14.0-18.0); LYMPHOCYTES # (AUTO) 0.4 (1.0-3.2); LYMPHOCYTES % 8.7 % (18.0-39.1); MEAN CORPUSCULAR HEMOGLOBIN 27.7 pg (28-32); MEAN CORPUSCULAR HGB CONC 30.2 g/dL (31-35); MEAN CORPUSCULAR VOLUME 91.7 fL (81-99); MONOCYTES # (AUTO) 0.6 (0.2-0.8); MONOCYTES % 12.2 % (4.4-11.3); NEUTROPHILS # (AUTO) 3.3 (2.1-6.9); NEUTROPHILS % 72.1 % (38.7-80.0); PLATELET COUNT 133 x10e3/uL (140-360); RED CELL DISTRIBUTION WIDTH 16.7 % (11.7-14.4)
[2018-03-23 12:56] LABS: INR 2.75; PROTHROMBIN TIME 27.3 seconds (11.9-14.5)
[2018-03-23] MEDS ORDERED: TERAZOSIN HCL5 MG (12:56)
[2018-03-23] MEDS ORDERED: XARELTO15 MG (12:56)
[2018-03-23] MEDS ORDERED: ATENOLOL50 MG (12:56)
[2018-03-23] MEDS ORDERED: ADVAIR 100-501 EACH (12:56)
[2018-03-23 12:57] LABS: PARTIAL THROMBOPLASTIN TIME 45.1 seconds (23.8-35.5)
[2018-03-23 13:06] LABS: ALBUMIN 3.6 g/dL (3.5-5.0); ALBUMIN/GLOBULIN RATIO 1.2 (0.8-2.0); ANION GAP 14.2 mmol/L (8-16); CALCIUM 8.9 mg/dL (8.4-10.2); CREATININE, SERUM 1.66 mg/dL (0.72-1.25); MAGNESIUM 1.9 MG/DL (1.3-2.1); POTASSIUM 4.2 mmol/L (3.5-5.1)
[2018-03-23 13:12] LABS: CREATINE KINASE MB 6.7 ng/mL (0-5.0)
[2018-03-23 13:47] LABS: EOSINOPHILS % (MANUAL) 4 % (0-7); LYMPHOCYTES % (MANUAL) 9 % (19-48); MONOCYTES % (MANUAL) 3 % (3.4-9.0); NEUTROPHILS % (MANUAL) 81 % (40-74)
[2018-03-23 13:48] LABS: PLATELET ESTIMATE ADEQUATE; PLATELET MORPHOLOGY COMMENT NORMAL
[2018-03-23 13:49] LABS: ANISOCYTOSIS SLIGHT; POIKILOCYTOSIS SLIGHT; RBC MORPHOLOGY COMMENT NORMAL
[2018-03-23] MEDS ORDERED: DIATRIZOATE MEGL/DIATRIZOA SOD 30 ML BTL PO ONE (17:21)
[2018-03-23 17:25] LABS: CLARITY,URINE SL CLOUDY (CLEAR); COLOR,URINE YELLOW (YELLOW); KETONES,URINE NEGATIVE (NEGATIVE); LEUKOCYTE ESTERASE ,URINE NEGATIVE (NEGATIVE); NITRITE,URINE NEGATIVE (NEGATIVE); PROTEIN,URINE DIPSTICK 1+ (NEGATIVE); URINE UROBILINOGEN 0.2 mg/dL (0.2 - 1)
[2018-03-23 17:26] LABS: BILIRUBIN,URINE NEGATIVE (NEGATIVE)
[2018-03-23 17:31] LABS: BACTERIA,URINE FEW /HPF; EPITHELIAL CELLS,URINE FEW /LPF; HYALINE CASTS 0-1 (0-1)
[2018-03-23] MEDS ORDERED: DEXTROSE 50% SYRINGE 50 ML IV PRN (17:45)
[2018-03-23] MEDS ORDERED: BUMETANIDE INJ 0.25MG/ML 4ML VIAL IV ONE (18:30)
[2018-03-23 18:41] LABS: CREATININE,URINE RANDOM 158.89 mg/dL (63-166); TOTAL PROTEIN, URINE 47.9 mg/dL (1-14)
[2018-03-23] MEDS: FUROSEMIDE INJ 10 MG/ML 2 ML VIAL IV SCH (18:50)
--- NOTE | 2018-03-23 18:58 | Diagnostic Imaging Report ---
EXAM: CT Abdomen and Pelvis WITHOUT contrast INDICATION: Swollen scrotum. Anasarca. COMPARISON: None. TECHNIQUE: Abdomen and pelvis were scanned utilizing a multidetector helical scanner from the lung base to the pubic symphysis without administration of IV contrast. Absence of intravenous contrast decreases sensitivity for detection of focal lesions and vascular pathology. Coronal and sagittal reformations were obtained. Routine protocol was performed. IV CONTRAST: None. ORAL CONTRAST: Gastrografin and water mixture. RADIATION DOSE: Total DLP: 1485.74 mGy*cm Estimated effective dose: (DLP x 0.015 x size factor) mSv COMPLICATIONS: None FINDINGS: Evaluation limited due to beam hardening artifact due to arms placed over patient's abdomen at the time of the examination due to patient's condition. In addition, limitations due to the lack of contrast. LINES and TUBES: None. LOWER THORAX: Small left pleural effusion with possible split pleura. Left basilar airspace disease possibly atelectasis; findings not well evaluated without contrast medium. Coronary artery calcifications. HEPATOBILIARY: No focal hepatic lesions. No biliary ductal dilation. GALLBLADDER: Small calcified gallstones.. No wall thickening. SPLEEN: No splenomegaly. PANCREAS: No focal masses or ductal dilatation. ADRENALS: No adrenal nodules KIDNEYS/URETERS: Punctate calculi in the lower pole of the left kidney. Moderate dilatation of the left renal pelvis and calyceal system, with normal caliber left ureter suggesting UPJ obstruction. GI TRACT: No abnormal distention, wall thickening, or evidence of bowel obstruction. Appendix is normal. Scattered descending sigmoid colon diverticula without CT evidence of diverticulitis. PELVIC ORGANS/BLADDER: Unremarkable. LYMPH NODES: No lymphadenopathy. VESSELS: There is mild atherosclerotic disease in the aorta and major arterial branches. PERITONEUM / RETROPERITONEUM: Small volume of ascites, predominantly in the perihepatic location. BONES: There are degenerative changes in the lumbar spine. SOFT TISSUES: Bilateral gynecomastia. Anasarca. Bilateral small fat-containing inguinal hernias. IMPRESSION: 1. Small volume ascites. 2. Findings suggestive of left UPJ obstruction. 3. Anasarca. 4. Small volume left pleural effusion and probably left basilar atelectasis versus pneumonia in the proper clinical setting. 5. Colonic diverticulosis without diverticulitis. Signed by: Dr. Yesica Rocha M.D. on 03/23/2018 6:55 PM
--- NOTE | 2018-03-23 19:17 | Diagnostic Imaging Report ---
EXAMINATION: CHEST 2 VIEWS INDICATION: Asthma. Congestive heart failure. \S\ASTHMA \S\[id number] \S\1852 COMPARISON: 11/13/2017 FINDINGS: TUBES and LINES: None. LUNGS: Perihilar peribronchial hazy opacity with ill-defined opacity in the left lung base. PLEURA: Possible left pleural effusion. HEART AND MEDIASTINUM: Cardiomegaly with pulmonary vascular congestion. BONES AND SOFT TISSUES: No acute osseous lesion. Soft tissues are unremarkable. UPPER ABDOMEN: No free air under the diaphragm. IMPRESSION: Findings worrisome for left lower lobe pneumonia. Findings consistent with congestive heart failure. Follow-up imaging is indicated to document clearing. Signed by: Dr. Augustine Briscoe M.D. on 03/23/2018 7:13 PM
[2018-03-23] MEDS ORDERED: BUMETANIDE INJ 0.25 MG/ML 10 ML VIAL ONE (19:59)
[2018-03-23] MEDS ORDERED: SODIUM CHLORIDE 0.9% 100 ML ONE (20:12)
[2018-03-23] MEDS: BUMETANIDE 10 MG in SODIUM CHLORIDE 0.9% 100 ML 60 ML IV SCH (20:41)
[2018-03-23] MEDS: INSULIN LISPRO 100 UNIT/1 ML 3ML VIAL SQ SCH (20:53)
[2018-03-23 21:03] LABS: CREATINE KINASE MB 6.9 ng/mL (0-5.0)
--- NOTE | 2018-03-23 21:11 | Consultation ---
DATE OF CONSULTATION: March 23, 2018 HISTORY: Oewgc-zoc-vrrp-old white gentleman, morbidly obese, who had prior history of sleep apnea and history of asthma, followed by Dr. Penny and now Dr. Oviedo, brought in here with scrotal edema since last 3 days. On further questioning, patient has been gradually gaining weight and gradually has developed increased abdominal girth and circumference with swelling in lower extremity and flank area and difficulty breathing for the last several weeks. He denies any fever and chills. Has history of asthma, hypertension. No apparent documented angioplasty or stenting of the coronaries, but has coronary artery disease, apparently on Xarelto, follows Dr. Troncoso. Has atrial fibrillation. He had a cardiac cath, but according to patient he did not have significant disease. I assume the Xarelto is for the atrial fibrillation. He had sleep apnea. He had a palato-uvular surgery done and a tracheostomy, this was 13 years ago, now he says he is "cured." He has type 2 diabetes. Has been on prednisone at home plus glimepiride. He is on Xarelto, receives terazosin I believe for prostate enlargement. Patient denies any trouble passing urine though. Also on atenolol 50 mg tablets once a day and on Zocor. ALLERGIES: APPARENTLY REPORTED SHERIN INHIBITOR, DIGOXIN, FUROSEMIDE, LISINOPRIL, METFORMIN, AND ALDACTONE. WHEN I SPOKE TO THE PATIENT THE ONLY ALLERGY HE TELLS ME IS SHERIN INHIBITORS. HE DENIES ANY ALLERGY TO LASIX OR ALDACTONE. SOCIAL HISTORY: Patient is , by bedside. Does not smoke or drink. No x-ray done at this point in time. LABORATORY TEST: Shows white count 4.5, hemoglobin 9.7. Sodium 141, potassium 4.2, bicarb 29, creatinine 1.66. Alkaline phosphatase 158. BNP 323. Albumin is 3.6, total protein 6.6. FAMILY HISTORY: Significant for diabetes. PHYSICAL EXAMINATION: GENERAL: Patient is sitting up, morbidly obese gentleman with obvious edema of thighs, lower extremity, scrotum, abdominal wall, and flanks. He is mildly short of breath with oxygen saturation 100% on nasal cannula. His respiratory rate is 24, his pulse rate is 96, his blood pressure is 149/84. HEENT: Head and neck: Cornea clear. Oral mucosa moist. Neck veins not distended. LUNGS: Harsh vesicular breath sounds. Decreased air entry at bases. No rales. HEART: S1, S2 audible. Distant heart sounds. ABDOMEN: Otherwise soft, but firm. EXTREMITIES: Significant abdominal wall, flank, sacral, and lower extremity edema about 3+. IMPRESSION AND PLAN: 1. Diffuse anasarca. 2. Generalized body edema. 3. History of type 2 diabetes. 4. Hypertension. 5. Atrial fibrillation. 6. Multiple comorbidities. 7. History of benign prostatic hypertrophy. Plan on requesting the nurse to place a Lomas catheter. Will send urinalysis. Knee-high MILADYS hoses. Will start Bumex drip and aggressively diurese. Consider stopping atenolol. He has a history of asthma, consider an alternative if it is given for heart rate control. Will give 2 mg Bumex IV STAT and start the patient on 1 mg per hour. The Lasix allergy reported on OCT is inaccurate per patient. Will obtain spot urine protein creatinine ratio to rule out nephrotic range proteinuria or diabetic nephropathy. Has acute kidney injury, possibly chronic, possibly diabetic or hypertensive nephrosclerosis. Discussed with . Discussed with patient. Thank you. Job#: [id number]
[2018-03-23 21:20] VITALS: BP 154/91
[2018-03-23 22:11] VITALS: BP 154/91
[2018-03-23] MEDS: SIMVASTATIN 40 MG TAB PO SCH (23:31)
--- NOTE | 2018-03-23 23:58 | History and Physical ---
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 He has a history of obstructive sleep apnea, underwent UPP for repair. He has a history of angioneurotic edema related to lisinopril. He has a history of intermittent atrial fibrillation, currently anticoagulated. Medications include aspirin; atenolol; Breo, this was changed to Advair because of his insurance; Amaryl; Zocor and terazosin. He has a history of hypertension, paroxysmal atrial fibrillation, diabetes diagnosed in 1992. He has been gaining tremendous amount of weight. PHYSICAL EXAMINATION VITAL SIGNS: Temperature 97.6, pulse 87, blood pressure 123/80. HEAD: Normocephalic, atraumatic. NECK: Trachea midline. LUNGS: Diminished breath sounds. HEART: Regular rhythm. ABDOMEN: Little distended. Ascites is felt to be present. EXTREMITIES: Edematous scrotal edema is noted. Some leg edema. IMPRESSION 1. Anasarca. 2. Congestive heart failure. 3. Chronic kidney disease. 4. Diabetes. 5. Hypertension. 6. Sleep apnea, which he claims as controlled after his uvulopalatopharyngoplasty. Patient has been admitted for diuresis. Job#: [id number] DANIELLE
[2018-03-24] VITALS (7 sets, daily range): BP systolic 141–169; BP diastolic 70–99
[2018-03-24] MEDS: BUMETANIDE 10 MG in SODIUM CHLORIDE 0.9% 100 ML 60 ML IV SCH ×2 (04:30→09:11)
[2018-03-24 05:52] LABS: BASOPHILS % 0.4 % (0.0-1.0); EOSINOPHILS # (AUTO) 0.3 (0.0-0.4); HEMATOCRIT 30.5 % (38.2-49.6); HEMOGLOBIN 9.3 g/dL (14.0-18.0); LYMPHOCYTES # (AUTO) 0.4 (1.0-3.2); LYMPHOCYTES % 7.6 % (18.0-39.1); MEAN CORPUSCULAR HEMOGLOBIN 27.8 pg (28-32); MEAN CORPUSCULAR HGB CONC 30.5 g/dL (31-35); MONOCYTES # (AUTO) 0.7 (0.2-0.8); MONOCYTES % 14.6 % (4.4-11.3); NEUTROPHILS # (AUTO) 3.6 (2.1-6.9); PLATELET COUNT 132 x10e3/uL (140-360); RED BLOOD COUNT 3.35 x10e6/uL (4.3-5.7); RED CELL DISTRIBUTION WIDTH 16.8 % (11.7-14.4)
[2018-03-24] MEDS: FUROSEMIDE INJ 10 MG/ML 2 ML VIAL IV SCH ×2 (06:20→18:21)
[2018-03-24 06:22] LABS: CREATINE KINASE MB 4.7 ng/mL (0-5.0)
[2018-03-24 06:37] LABS: ALBUMIN 3.4 g/dL (3.5-5.0); ALBUMIN/GLOBULIN RATIO 1.2 (0.8-2.0); ANION GAP 14.2 mmol/L (8-16); CALCIUM 9.1 mg/dL (8.4-10.2); CREATININE, SERUM 1.43 mg/dL (0.72-1.25); POTASSIUM 4.2 mmol/L (3.5-5.1)
[2018-03-24 07:04] LABS: EOSINOPHILS % (MANUAL) 7 % (0-7); LYMPHOCYTES % (MANUAL) 15 % (19-48); MONOCYTES % (MANUAL) 14 % (3.4-9.0); NEUTROPHILS % (MANUAL) 62 % (40-74)
[2018-03-24 07:06] LABS: PLATELET ESTIMATE ADEQUATE; PLATELET MORPHOLOGY COMMENT NORMAL; RBC MORPHOLOGY COMMENT NORMAL
[2018-03-24] MEDS ORDERED: RIVAROXABAN 20 MG TABLET PO SCH ×3 (07:30→17:00)
[2018-03-24] MEDS ORDERED: RIVAROXABAN 15 MG TABLET PO SCH (07:30)
[2018-03-24] MEDS: INSULIN LISPRO 100 UNIT/1 ML 3ML VIAL SQ SCH ×4 (07:30→21:00)
[2018-03-24] MEDS ORDERED: SALMETEROL/FLUTICASONE 100/50 INH SCH (08:00)
[2018-03-24] MEDS: TERAZOSIN HCL 5 MG CAP PO SCH (08:23)
[2018-03-24] MEDS: ATENOLOL 50 MG TAB PO SCH (08:23)
[2018-03-24 08:55] LABS: % IRON SATURATION 14 % (15-50); IRON 52 ug/dL (65-175); TOTAL IRON BINDING CAPACITY 367 ug/dL (261-478); TRANSFERRIN 262 mg/dL (174-364)
[2018-03-24] MEDS ORDERED: SIMVASTATIN 40 MG TAB PO SCH (09:00)
--- NOTE | 2018-03-24 13:58 | Consultation ---
DATE OF CONSULTATION: CARDIOLOGY CONSULTATION NOTE ATTENDING PHYSICIAN: Dr. Jerry Oviedo. CLINICAL HISTORY: This is a 62-year-old white man, known to me from previous evaluation, admitted via the emergency room because of testicular swelling of 4 days' duration associated with chronic lower extremity edema. This patient is known to have atrial fibrillation with ejection fraction of 55%. He has history of chronic kidney injury with GFR of approximately 50, creatinine of 1.4. He is treated with Xarelto 15 mg per day. There is history of hypertension and diabetes. He has benign prostatic hypertrophy, treated with terazosin. His albumin is approximately 3.5. He only has 1+ proteinuria. He does have some microhematuria and iron-deficiency anemia. He presents with testicular swelling of 4 days' duration, has chronic lower extremity edema. He started on diuretics. Cardiology consultation requested. PAST MEDICAL HISTORY: Also remarkable for hyperlipidemia, digoxin toxicity, angioedema due to SHERIN inhibitors, especially lisinopril. There is history of hyperbilirubinemia at 1.4 and pneumonia in 2015. PAST SURGICAL HISTORY: Included sleep apnea surgery, hand reconstruction in 1975. FAMILY HISTORY: Father has hypertension and unknown cancer. Mother from natural and diabetes. Brother had hypertension and diabetes. Sister is healthy. PERSONAL AND SOCIAL HISTORY: He was a heavy drinker for approximately 15 years, stopped drinking heavily approximately 10 years ago. ALLERGIES: TO LISINOPRIL WHICH CAUSED ANGIOEDEMA, DIGOXIN, LASIX, METFORMIN, AND SPIRONOLACTONE. REVIEW OF SYSTEMS: Noncontributory. PHYSICAL EXAMINATION GENERAL: He is obese, alert, coherent, appears to be comfortable. CARDIAC: Jugular veins were not distended. S1 and S2 were irregularly irregular, variable intensity of S1. LUNGS: Showed diminished breath sounds. ABDOMEN: Soft. Bowel sounds are present. EXTREMITIES: Showed 1+ to 2+ firm, slightly pitting edema. GENITOURINARY: His testicles are swollen. LABORATORY STUDIES: The white count is 4500, hemoglobin 9.7, platelet count is 133,000. Creatinine is 1.4, BUN is 26, GFR is 50. Urine showed 1+ protein and 1+ blood. INR was 2.75. Albumin is 3.5. IMPRESSION 1. Scrotal swelling of undetermined etiology, consider lymphatic obstruction. 2. Lower extremity peripheral edema, possibly venous insufficiency. 3. Left ventricular ejection fraction is approximately 55%. 4. Chronic atrial fibrillation, on anticoagulants. 5. Diabetes. 6. Hypertension. 7. Hyperlipidemia. 8. Iron-deficiency anemia. 9. Microhematuria. 10. Mild hypoalbuminemia and 1+ proteinuria. 11. History of digoxin toxicity. 12. History of angiotensin-converting enzyme inhibitor, lisinopril-induced angioedema. 13. ALLERGIES TO LASIX, METFORMIN, AND SPIRONOLACTONE. 14. Chronic kidney disease; GFR of 50, creatinine 1.45. 15. Obesity. 16. Possible cirrhosis of the liver, history of heavy alcohol usage. 17. Thrombocytopenia. RECOMMENDATIONS: Workup for cirrhosis of the liver, rule out lymphatic obstruction. Keep Xarelto at 15 mg unless there is worsening of microhematuria. Trial of diuretics. Urology and GI opinion. Job#: [id number] SUB cc:DR. JERRY AGUIAR
[2018-03-24] MEDS: RIVAROXABAN 15 MG TABLET PO SCH (17:25)
--- NOTE | 2018-03-24 18:31 | Diagnostic Imaging Report ---
PROCEDURE:US RETROPERITONEAL ( KIDNEY ). COMPARISON:[facility], CT, CT ABDOMEN/PELVIS WO, 03/23/2018, 18:09. [facility], US, US RETROPERITONEAL ( KIDNEY )., 11/13/2017, 10:16. INDICATIONS:ACUTE TUBULAR NECROSIS TECHNIQUE: Ace-scale and color sonographic images of the bilateral kidneys and bladder where obtained in transverse and longitudinal planes. FINDINGS: Exam limited by patient's large body habitus and inability to change position due to scrotal pain and swelling RIGHT KIDNEY: 11.2 cm, cortex 1.9 cm Cysts: None Solid masses: None Stones: None Hydronephrosis: None Echogenicity: Normal LEFT KIDNEY: Approximately 13.7 cm, cortex 1.2 cm Cysts: 2.5 x 2.0 x 2.8 cm cystic, anechoic lesion in the mid aspect, likely representing a simple cyst. Solid masses: None Stones: None Hydronephrosis: Likely marked left hydronephrosis Echogenicity: Normal Bladder: Lomas catheter in place. Bladder is decompressed. CONCLUSION: 1. Marked left hydronephrosis. 2. No stones or focal lesions. 3. Left renal cortical thinning Esau Herrera M.D. Dictated by: Esau Herrera M.D. on 03/24/2018 at 18:35 Electronically approved by: Esau Herrera M.D. on 03/24/2018 at 18:35
--- NOTE | 2018-03-24 18:34 | Diagnostic Imaging Report ---
PROCEDURE:US CHEST (INCL MEDIASTINUM) COMPARISON:None. INDICATIONS:EFFUSIONS FINDINGS:Sonographic evaluation of the bilateral hemithoraces was performed in transverse diameter, and coronal planes. Examination shows small left pleural effusion. No significant right pleural effusion is identified. CONCLUSION: 1. Small left pleural effusion. 2. No significant right pleural effusion is identified. Esau Herrera M.D. Dictated by: Esau Herrera M.D. on 03/24/2018 at 18:39 Electronically approved by: Esau Herrera M.D. on 03/24/2018 at 18:39
--- NOTE | 2018-03-24 20:08 | Diagnostic Imaging Report ---
Liver-Spleen Scan Clinical information: 62 M with anasarca; HTN; CKD; CHF; diabetes Report: Following intravenous administration of 7.2 mCi of Tc-99 and sulfur colloid, images of the liver and spleen were obtained in multiple projections. Tomographic images of the upper abdomen were also obtained. The liver is reduced in size. The spleen appears normal in size. Distribution of tracer activity is homogeneous throughout the hepatic and splenic parenchyma. No focal abnormalities are identified. Increased tracer activity seen in the bone marrow and lungs. There is no apparent shift of tracer activity from the hepatic parenchyma to the spleen. Impression: 1. No scan evidence of hepatic or splenic masses. 2. Marked hepatocyte dysfunction with reduction in liver size, consistent with cirrhosis. 3. Hypersplenism is not present. Signed by: Dr. Jessica Champion M.D. on 03/24/2018 8:05 PM
[2018-03-24] MEDS: SIMVASTATIN 40 MG TAB PO SCH (22:39)
--- NOTE | 2018-03-24 23:32 | Consultation ---
DATE OF CONSULTATION: March 24, 2018 INITIAL VISIT SERVICE: Urology. ATTENDING PHYSICIAN: Dr. Jerry Oviedo REASON FOR CONSULTATION: Suspected UPJ on the left side and marked genital edema. HISTORY OF PRESENT ILLNESS: This is a 62-year-old patient who was admitted to the hospital for congestive heart failure and marked edema of the lower extremities as well as the genital area. He did have placement of a Lomas catheter. There was no indication of acute urinary retention. PAST MEDICAL HISTORY: Remarkable for: 1. Hyperlipidemia. 2. Digoxin toxicity. 3. Angioedema due to SHERIN inhibitor. 4. Obesity. PAST SURGICAL HISTORY: 1. Sleep apnea surgery. 2. Hand reconstruction in 1975. FAMILY HISTORY: Hypertension and unknown cancer and diabetes. PERSONAL AND SOCIAL HISTORY: Patient was a heavy drinker up to 15 years ago. No use of illicit drugs. No information about smoking. ALLERGIES TO MEDICATIONS: 1. LISINOPRIL. 2. DIGOXIN. 3. LASIX. 4. METFORMIN. 5. SPIRONOLACTONE. REVIEW OF SYSTEMS: Twelve systems reviewed. They are not contributory as far as urology is concerned. The patient has no history of any urological problem. PHYSICAL EXAMINATION: GENERAL: The patient is alert and oriented x3, does not seem to be in acute distress. VITAL SIGNS: Blood pressure 140/78, pulse 90, respirations 20, temperature 97.8. HEAD: Symmetric. EYES: Normal movement. NECK: No JVD. No masses. CHEST: Clear. HEART: Regular. ABDOMEN: Soft. EXTERNAL GENITALIA: Edema. LOWER EXTREMITIES: Edema +2. GENITOURINARY: Edema of the scrotum and penis. Lomas catheter in place. LABORATORY DATA: Sodium 141, potassium 4.2, chloride 101, bicarb 30, creatinine 1.43, BUN 26. Hemoglobin 9.3, white count 5000. Urinalysis unremarkable. Impression of the CT scan is that there is some dilation of the upper collecting system on the left side with normal caliber and this is suspicious for UPJ obstruction. patient has also very small calcification in the left kidney. PLAN: Patient will need to keep the Lomas for now. In the future, he may need cystoscopy and retrograde as part of the assessment of the upper tract. We will follow with you. Thank you for the consult. Job#: [id number]
[2018-03-25] VITALS: BP 144/85
[2018-03-25 04:00] VITALS: BP 135/72
[2018-03-25 05:14] LABS: ALBUMIN 3.4 g/dL (3.5-5.0); ALBUMIN/GLOBULIN RATIO 1.2 (0.8-2.0); ANION GAP 17.7 mmol/L (8-16); CALCIUM 9.3 mg/dL (8.4-10.2); CREATININE, SERUM 1.47 mg/dL (0.72-1.25); MAGNESIUM 1.5 MG/DL (1.3-2.1); PHOSPHORUS 3.8 MG/DL (2.3-4.7); POTASSIUM 3.7 mmol/L (3.5-5.1)
[2018-03-25] MEDS: FUROSEMIDE INJ 10 MG/ML 2 ML VIAL IV SCH ×2 (05:17→18:33)
[2018-03-25] MEDS: BUMETANIDE 10 MG in SODIUM CHLORIDE 0.9% 100 ML 60 ML IV SCH ×3 (05:17→20:30)
[2018-03-25] MEDS: INSULIN LISPRO 100 UNIT/1 ML 3ML VIAL SQ SCH ×4 (07:30→21:29)
[2018-03-25] MEDS: ATENOLOL 50 MG TAB PO SCH (08:27)
[2018-03-25] MEDS: TERAZOSIN HCL 5 MG CAP PO SCH (08:27)
[2018-03-25 08:36] VITALS: BP 138/68
[2018-03-25] MEDS ORDERED: MAGNESIUM HYDROXIDE 30 ML UDC PO PRN (09:30)
[2018-03-25] MEDS ORDERED: IRON SUCROSE 100 MG in SODIUM CHLORIDE 0.9% 100 ML 100 ML IV SCH (11:00)
--- NOTE | 2018-03-25 11:19 | Cardiology Report ---
DATE OF STUDY: ECHOCARDIOGRAM M-MODE: Dilated left atrium. Left ventricular hypertrophy. Normal contractility. Aortic sclerosis and sclerosis of the mitral annulus. No pericardial effusion. SECTOR SCAN: Dilated left and right atrium. Left ventricular hypertrophy. Normal contractility. Ejection fraction is approximately 55%. Aortic valve is mildly sclerotic. Mitral annulus is mildly sclerotic. Normal tricuspid valve. No pericardial effusion. CARDIAC DOPPLER STUDY WITH COLOR: One plus aortic and mitral regurgitation. Trace tricuspid regurgitation. Pulmonary artery systolic pressure estimated at 27 mmHg. CONCLUSIONS 1. Left ventricular hypertrophy with ejection fraction of approximately 55%. 2. Mild mitral regurgitation with moderately dilated left atrium. 3. Trace tricuspid regurgitation with moderately dilated right atrium. 4. Aortic sclerosis with mild aortic regurgitation. 5. No significant pulmonary hypertension. Pulmonary artery systolic pressure estimated at 27 mmHg. Job#: [id number] RI cc:LIU BRAGA MD
[2018-03-25] MEDS: METOLAZONE 5 MG TAB PO SCH (14:46)
[2018-03-25] MEDS ORDERED: IRON DEXTRAN INJ 50 MG in SODIUM CHLORIDE 0.9% 100 ML IV ONE (15:30)
[2018-03-25] MEDS ORDERED: IRON DEXTRAN INJ 500 MG in SODIUM CHLORIDE 0.9% 500ML 500 ML IV PRN (15:30)
[2018-03-25] MEDS ORDERED: DEXAMETHASONE PHOS 10MG INJ 20 MG in SODIUM CHLORIDE 0.9% 50ML 50 ML IV ONE (16:30)
[2018-03-25] MEDS ORDERED: DIPHENHYDRAMINE HCL INJ 25 MG in SODIUM CHLORIDE 0.9% 50ML 50 ML IV ONE (17:00)
[2018-03-25 17:14] VITALS: BP 136/64
[2018-03-25] MEDS ORDERED: FAMOTIDINE INJ 20 MG in SODIUM CHLORIDE 0.9% 50ML 50 ML IV ONE (17:30)
[2018-03-25] MEDS ORDERED: IRON SUCROSE IV ONE (18:00)
[2018-03-25] MEDS ORDERED: SODIUM CHLORIDE 0.9% IV ONE (18:00)
[2018-03-25] MEDS ORDERED: SODIUM CHLORIDE 0.9% 250ML 250 ML ONE (18:19)
[2018-03-25] MEDS: RIVAROXABAN 15 MG TABLET PO SCH (18:33)
[2018-03-25 19:27] VITALS: BP 136/64
[2018-03-25 20:00] VITALS: BP 145/92
[2018-03-25] MEDS ORDERED: IRON SUCROSE 500 MG in SODIUM CHLORIDE 0.9% 500ML 500 ML IV ONE (20:00)
[2018-03-25] MEDS: SIMVASTATIN 40 MG TAB PO SCH (21:29)
[2018-03-26] VITALS (7 sets, daily range): BP systolic 123–167; BP diastolic 68–92
[2018-03-26] MEDS: FUROSEMIDE INJ 10 MG/ML 2 ML VIAL IV SCH (06:32)
[2018-03-26] MEDS: BUMETANIDE 10 MG in SODIUM CHLORIDE 0.9% 100 ML 60 ML IV SCH (06:32)
[2018-03-26 06:36] LABS: ALBUMIN 3.5 g/dL (3.5-5.0); ALBUMIN/GLOBULIN RATIO 1.2 (0.8-2.0); ANION GAP 16.6 mmol/L (8-16); CALCIUM 9.5 mg/dL (8.4-10.2); CREATININE, SERUM 1.84 mg/dL (0.72-1.25); POTASSIUM 3.6 mmol/L (3.5-5.1)
[2018-03-26] MEDS: TERAZOSIN HCL 5 MG CAP PO SCH (07:30)
[2018-03-26] MEDS: ATENOLOL 50 MG TAB PO SCH (07:30)
[2018-03-26] MEDS: INSULIN LISPRO 100 UNIT/1 ML 3ML VIAL SQ SCH ×4 (09:00→21:05)
[2018-03-26] MEDS: METOLAZONE 5 MG TAB PO SCH (09:59)
[2018-03-26] MEDS: DOCUSATE SODIUM 100 MG CAP PO SCH (09:59)
[2018-03-26] MEDS: FUROSEMIDE 40 MG TAB PO SCH ×3 (09:59→21:21)
[2018-03-26] MEDS ORDERED: RIVAROXABAN 15 MG TABLET PO SCH (17:00)
[2018-03-26] MEDS: RIVAROXABAN 15 MG TABLET PO SCH (17:06)
[2018-03-26] MEDS: SIMVASTATIN 40 MG TAB PO SCH (21:00)
[2018-03-27] VITALS (9 sets, daily range): BP systolic 124–157; BP diastolic 58–89
[2018-03-27] MEDS ORDERED: PHYTONADIONE 10 MG/ML AMP SQ STA (00:35)
[2018-03-27] MEDS: INSULIN LISPRO 100 UNIT/1 ML 3ML VIAL SQ SCH ×4 (07:30→21:10)
[2018-03-27] MEDS: TERAZOSIN HCL 5 MG CAP PO SCH (08:52)
[2018-03-27] MEDS: ATENOLOL 50 MG TAB PO SCH (08:53)
[2018-03-27] MEDS: FUROSEMIDE 40 MG TAB PO SCH ×3 (08:53→21:36)
[2018-03-27] MEDS: METOLAZONE 5 MG TAB PO SCH (08:53)
[2018-03-27] MEDS: DOCUSATE SODIUM 100 MG CAP PO SCH (08:53)
[2018-03-27 09:32] LABS: ANION GAP 19.1 mmol/L (8-16); CALCIUM 9.8 mg/dL (8.4-10.2); CREATININE, SERUM 1.95 mg/dL (0.72-1.25); POTASSIUM 3.1 mmol/L (3.5-5.1)
[2018-03-27] MEDS ORDERED: POTASSIUM CHLORIDE 20MEQ/100ML 200 ML IV ONE (15:15)
[2018-03-27] MEDS: RIVAROXABAN 15 MG TABLET PO SCH (17:41)
[2018-03-27] MEDS: SIMVASTATIN 40 MG TAB PO SCH (21:36)
[2018-03-28] VITALS: BP 149/81
[2018-03-28 04:00] VITALS: BP 126/66
[2018-03-28 04:53] LABS: BASOPHILS % 0.5 % (0.0-1.0); EOSINOPHILS # (AUTO) 0.3 (0.0-0.4); EOSINOPHILS % 4.9 % (0.0-6.0); HEMATOCRIT 31.5 % (38.2-49.6); HEMOGLOBIN 9.9 g/dL (14.0-18.0); LYMPHOCYTES # (AUTO) 0.7 (1.0-3.2); LYMPHOCYTES % 11.4 % (18.0-39.1); MEAN CORPUSCULAR HGB CONC 31.4 g/dL (31-35); MEAN CORPUSCULAR VOLUME 85.8 fL (81-99); NEUTROPHILS # (AUTO) 4.1 (2.1-6.9); NEUTROPHILS % 66.5 % (38.7-80.0); PLATELET COUNT 143 x10e3/uL (140-360); RED BLOOD COUNT 3.67 x10e6/uL (4.3-5.7); RED CELL DISTRIBUTION WIDTH 16.4 % (11.7-14.4)
[2018-03-28 05:18] LABS: CALCIUM 9.6 mg/dL (8.4-10.2); CREATININE, SERUM 1.93 mg/dL (0.72-1.25)
[2018-03-28] MEDS: INSULIN LISPRO 100 UNIT/1 ML 3ML VIAL SQ SCH ×4 (07:30→21:00)
[2018-03-28 07:59] VITALS: BP 148/84
[2018-03-28] MEDS: TERAZOSIN HCL 5 MG CAP PO SCH (08:26)
[2018-03-28] MEDS: METOLAZONE 5 MG TAB PO SCH (08:27)
[2018-03-28] MEDS: FUROSEMIDE 40 MG TAB PO SCH (08:27)
[2018-03-28] MEDS: ATENOLOL 50 MG TAB PO SCH (08:27)
[2018-03-28] MEDS: DOCUSATE SODIUM 100 MG CAP PO SCH (08:27)
[2018-03-28] MEDS: CYANOCOBALAMIN 1,000 MCG TAB PO SCH (08:27)
[2018-03-28] MEDS ORDERED: POTASSIUM CHLORIDE 20 MEQ TAB CR PO PRN (08:45)
[2018-03-28] MEDS ORDERED: POTASSIUM CHLORIDE 20 MEQ TAB CR PO ONE (09:10)
[2018-03-28] MEDS ORDERED: ACETAZOLAMIDE 250 MG TAB PO ONE (09:30)
[2018-03-28] MEDS ORDERED: METOLAZONE 5 MG TAB PO SCH (10:00)
[2018-03-28] MEDS ORDERED: FUROSEMIDE INJ 10 MG/ML 4 ML VIAL ONE (10:41)
[2018-03-28 12:20] VITALS: BP 123/56
[2018-03-28 14:03] LABS: FREE T4 (FREE THYROXINE) 1.12 ng/dL (0.9-1.8); THYROID STIMULATING HORMONE 5.426 uIU/mL (0.350-4.940)
--- NOTE | 2018-03-28 15:50 | Consultation ---
DATE OF CONSULTATION: March 28, 2018 ENDOCRINE CONSULTATION PATIENT OF: Dr. Oviedo. HPI: Thank you very much for referring this patient. This is a 62-year-old white male gentleman who is referred to me for evaluation of diabetes mellitus. Patient tells me that he is a known diabetic for almost 30 years and has been on various drugs. Lately, he has been on glimepiride 1 mg twice daily, metformin and was taking insulin in the past. The patient came to the hospital with history of scrotal edema, generalized anasarca. He has longstanding history of chronic atrial fibrillation. He also has history of hyperlipidemia, hypertension. The patient also has sleep apnea. Patient is also anemic. PHYSICAL EXAMINATION GENERAL: Today, the patient is alert, awake, a little bit apprehensive. He is moderate to morbidly obese. VITAL SIGNS: His heart rate is around 78, blood pressure 130/80 mmHg. HEENT: Essentially unremarkable. Thyroid is palpable. Clinically, he is near euthyroid. CHEST: Bilateral vesicular breathing. He has bilateral bronchospasm and basal rales. CARDIAC: First and second heart sound. There is no 3rd or 4th heart sounds. Ejection systolic murmur of grade 2/6. EXTREMITIES: Patient has mild pedal edema and has some evidence of generalized anasarca. His blood sugars have been in the ranges of 46 to 250. His BUN and creatinine is 46 and 1.93. Hemoglobin is 9.9 with hematocrit of 31.5. INR is 2.75. CLINICAL IMPRESSION 1. Diabetes mellitus type 2, uncontrolled with complication. 2. Generalized anasarca. 3. Chronic renal failure. 4. Hypertension. 5. Obstructive pulmonary disease. 6. Anemia. The plan at this time is to do a glycohemoglobin, thyroid function test. Stop the glimepiride and then metformin for now. Patient can be started on sliding scale insulin as well as may be Januvia 50 mg once daily. Thanks for referring this patient. I will be following this patient with you. Job#: [id number] CHANA
[2018-03-28] MEDS: RIVAROXABAN 15 MG TABLET PO SCH (16:52)
[2018-03-28 16:56] VITALS: BP 125/74
--- NOTE | 2018-03-28 19:24 | Diagnostic Imaging Report ---
Renal Scan with Lasix Washout Clinical information: 62 M with CKD; evaluate for left UPJ obstruction Technique: Following intravenous administration of 10 mCi of Tc-99m MAG3, dynamic images of the kidneys in the posterior projection were obtained through 40 minutes. Lasix 40 mg was administered intravenously at 13 minutes post injection of the tracer. Report: Left kidney: Perfusion is not visualized. The kidney has a distorted reniform shape with marked thinning of the renal cortex and scattered cortical defects. Extraction of tracer from the blood pool is markedly decreased. Clearance of tracer from the renal parenchyma is delayed and prolonged. The pelvicalyceal system is moderate to markedly dilated. Some increased pooling of tracer is seen within the pelvicalyceal system but the pelvicalyceal system does not fill to capacity due to the poor function of the kidney. No net drainage of tracer from the pelvicalyceal system is seen prior to administration of Lasix. No washout of tracer from the pelvicalyceal system is seen following administration of Lasix. The renogram curve continues to rise even after Lasix rendering an undefined T-1/2 for Lasix washout. No of tracer is seen within the left ureter. Right kidney: Perfusion to the right kidney is prompt. The right kidney has a rounded reniform shape with smooth contours. The kidney is decreased in overall size. Extraction of tracer by the renal parenchyma is decreased. Clearance of tracer from the renal parenchyma is markedly prolonged and decreased. The pelvicalyceal system is not dilated. No pooling of tracer is seen within the pelvicalyceal system. Drainage of tracer from the pelvicalyceal system cannot be assessed because very little tracer is cleared from the renal parenchyma. No tracer is seen within the right ureter. Differential renal function: The left kidney contributes 18% of total renal function and the right kidney contributes 82% (normal 43-57%). Impression: 1. Marked loss of renal parenchyma in the left kidney with severe chronic obstructive uropathy. This accounts for the decreased differential function of 18%. The differential renal function compares to the right kidney that has more renal parenchyma but severe impairment of tubular function. The remaining renal parenchyma has markedly impaired function. Moderate to marked hydronephrosis is present. Physiologically significant obstruction at the UPJ cannot be assessed because the kidney is too impaired to fill the pelvicalyceal system to capacity. 2. Severe medical renal disease in the right kidney with severe tubular function. No hydronephrosis is present. Obstruction of the UPJ cannot be assessed because no accumulation of tracer is seen in the pelvicalyceal system. 3. The differential function of compares the two kidney, both of which have severely impaired function. The higher right differential renal function reflects greater renal parenchyma mass. Signed by: Dr. Jessica Champion M.D. on 03/28/2018 7:20 PM
[2018-03-28 20:00] VITALS: BP 117/69
[2018-03-28] MEDS: SIMVASTATIN 40 MG TAB PO SCH (22:12)
[2018-03-29] VITALS: BP 123/74
[2018-03-29 04:00] VITALS: BP 116/69
[2018-03-29 05:33] LABS: INR 1.81; PROTHROMBIN TIME 19.7 seconds (11.9-14.5)
[2018-03-29] MEDS: INSULIN LISPRO 100 UNIT/1 ML 3ML VIAL SQ SCH ×2 (07:30→12:00)
[2018-03-29 08:30] VITALS: BP 144/61
[2018-03-29] MEDS: ATENOLOL 50 MG TAB PO SCH (08:30)
[2018-03-29] MEDS: TERAZOSIN HCL 5 MG CAP PO SCH (08:30)
[2018-03-29] MEDS ORDERED: SITAGLIPTIN 100 MG TAB PO SCH (09:00)
[2018-03-29] MEDS ORDERED: FUROSEMIDE 40 MG TAB PO SCH (09:00)
[2018-03-29] MEDS: CYANOCOBALAMIN 1,000 MCG TAB PO SCH (09:05)
[2018-03-29] MEDS: DOCUSATE SODIUM 100 MG CAP PO SCH (09:05)
[2018-03-29] MEDS ORDERED: JANUVIA50 MG PO (09:06)
[2018-03-29] MEDS ORDERED: LASIX40 MG PO (09:06)
[2018-03-29] MEDS ORDERED: VITAMIN B-121000 MCG PO (09:08)
[2018-03-29] MEDS ORDERED: POTASSIUM CHLO20 ME1 PO (09:08)
[2018-03-29] MEDS ORDERED: FUROSEMIDE40 MG PO (10:19)
[2018-03-29] MEDS ORDERED: JANUVIA100 MG PO (10:19)
[2018-03-29] MEDS ORDERED: VITAMIN B-121000 MC1 PO (10:19)
--- NOTE | 2018-03-29 10:22 | Discharge Summary ---
This is a patient of mine admitted with anasarca, progressive edema of the lower extremities and scrotal edema. History of chronic atrial fibrillation followed by Dr. Troncoso, chronically anticoagulated. History of chronic renal failure. History of anemia. Found to have, in addition to renal failure, cirrhosis and anemia, iron deficiency and B12 deficiency. He was also found to have renal failure with essentially nonfunctioning left kidney, also severe medical disease in the right. The risks of Xarelto were discussed with Dr. Troncoso, and he felt that the patient could continue on low-dose Xarelto at a dose of 15 mg. U[address] discussion with Dr. Scott. He felt that addressing the obstructive uropathy was pointless in a nonfunctioning kidney. He did not feel that nephrectomy was indicated. Patient desaturated to 85% on ambulation. Supplemental oxygen will be provided for him. Recurrence of his obstructive sleep apnea is suspected, and a sleep study will be scheduled. In addition, the patient's diabetes was addressed by Dr. Augustine who recommended Januvia 50 mg a day. He was discharged on vitamin B12 orally as his level was quite low at 210, Lasix 40, , Januvia 50, atenolol 50, Advair 100 per 50 for his asthma, Xarelto 15, simvastatin 40, terazosin 5 mg. GI evaluation is planned as an outpatient with Dr. Wale Alcala. Job#: [id number] ELADIO
--- NOTE | 2018-05-11 11:06 | Consultation ---
DATE OF CONSULTATION: CONSULTATION TO: Dr. Jerry Braga. HISTORY OF PRESENT ILLNESS: Mr. Wong is a 62-year-old male who has been referred to me for evaluation of anemia. No history of hematochezia, melena, hematuria, hematemesis or hemoptysis. HISTORY OF PAST ILLNESS: History of hyperlipidemia, history of congestive heart failure, and history of atrial fibrillation. SOCIAL HISTORY: Noncontributory. FAMILY HISTORY: Noncontributory. ALLERGIES: Reported to 1. METFORMIN. 2. LASIX. 3. ALDACTONE. 4. LISINOPRIL. 5. DIGOXIN. 6. ALL SHERIN INHIBITORS. MEDICATIONS: At this time 1. Bumetanide. 2. Atenolol. 3. Simvastatin. 4. Lasix. 5. Terazosin. 6. Rivaroxaban. REVIEW OF SYSTEMS HEENT: Normal. CARDIAC: History of congestive heart failure and history of atrial fibrillation. RESPIRATORY: History of congestive heart failure. GI: Normal. : Urologist is on the case. MUSCULOSKELETAL: Normal. SKIN AND BREAST: Normal. NEUROENDOCRINE: Normal. PHYSICAL EXAMINATION GENERAL: A rather obese male. No adenopathy. HEART: Tachycardic. LUNGS: Show coarse crepitation. ABDOMEN: Obese. RECTAL: Exam deferred. CENTRAL NERVOUS SYSTEM: Could not be examined. LABORATORY DATA: Shows a hemoglobin of 9.3 and hematocrit 30.5. White count is 5000 and platelets of 132,000 with low indices. Sodium 141, potassium 4.2, chloride 101. CO2 30, BUN 26, and creatinine 1.4. Bilirubin 1.6. SGOT 20 and SGPT 7. Alkaline phosphatase 145. IMPRESSION 1. Iron deficiency anemia. 2. Chronic renal failure. 3. Hypoproteinemia. 4. Hypoalbuminemia. 5. Hyperuricemia. 6. Acquired coagulopathy of INR of 2.75 because of Xarelto. 7. Congestive heart failure. 8. Possible bronchial pneumonia by chest x-ray. 9. Ascites. 10. Diverticulosis coli. 11. Gallstones by scan. 12. History of hyperlipidemia. 13. History of diabetes mellitus, insulin dependent. 14. History of atrial fibrillation. 15. SHERIN inhibitor allergies. 16. History of chronic alcoholism. 17. Morbid obesity. PLAN, COMMENTS AND SUGGESTIONS: Hypoproteinemia, hypoalbuminemia, and ascites is highly suggestive of cirrhosis of liver. This could even be cardiac cirrhosis. Suggest ammonia level. Suggest hepatitis profile. Suggest Infed. I will confine myself to hematology only and during this hospitalization, the patient has an insurance which is , which I cannot follow the patient as outpatient. Gastroenterology consultation perhaps as outpatient should also be considered. Job#: [id number] LINK cc:DR. COSME BRAGA
--- OUTSIDE RECORDS SUMMARY | 2018-06-01 21:08 | XMS REPORT | Continuity of Care Document ---
Author Author [facility] Organization [facility] Address [address] [place] [address] Phone Unavailable Care Team Providers Care Legal Support Assistant Name Role Phone LIU BRAGA MD PCP Insurance Providers Guarantor Chase Wong Address [address] [place] [address] Email [email or web address] Payer [facility] Policy Number [id number] Subscriber's Name JudithRocíoLisa C Relationship 01 Group Name RETIRED Effective Date 17 Advance Directives Directive Response Recorded Date/Time Does the patient have an advance directive? No 11/13/17 3:11am If yes, is advance directive on file with [facility]? No 11/13/17 3:11am If not on file with [facility] will patient provide a copy? No 11/13/17 3:11am Do you have a Directive to Physician? No 01/01/18 5:18pm Do you have a Medical Power of Computer Engineer? No 01/01/18 5:18pm Do you have an out of hospital Do Not Resuscitate Order? No 01/01/18 5:18pm Do you have any special needs we should be aware of? No 01/01/18 5:18pm Do you have a support person here with you today? Yes 01/01/18 5:18pm Did patient receive Notice of Privacy Practices? Yes 01/01/18 5:18pm Did patient receive patient rights and responsibilities? Yes 01/01/18 5:18pm Problems Medical Problem Onset Date Status Angio-edema [...] information available. Plan of Care Discharge Date 01/01/18 6:41pm Disposition HOME, SELF-CARE Condition at Discharge Stable Instructions/Education Provided Sprains Forms Provided Work/School Excuse Prescriptions See Medication Section Referrals LIU BRAGA MD Address: [address] [place] [id number] ISRA BIMAL CORTES DO Address: [address] [address] [place] [address] Additional Instructions/Education Elevate the left leg/thigh whenever possible to keep swelling down. Warm compress as needed Functional Status No functional status information available. Allergies, Adverse Reactions, Alerts Allergen Type Severity Reaction Status Last Updated Angiotensin-converting enzyme inhibitor Allergy Severe TONGUE SWELLING Active 11/12/17 Digoxin Allergy Unknown Active 01/01/18 Lisinopril Allergy Severe TONGUE SWELLING Active 11/12/17 Furosemide Allergy Unknown Active 01/01/18 Metformin Allergy Unknown Active 01/01/18 SPIRONLACTONE Allergy Unknown Active 01/01/18 Immunizations No immunization information available. Vital Signs Acute Vital Signs Vital Response Date/Time Temperature (Fahrenheit) 98.5 degrees F (97.6 - 99.5) 11/14/2017 12:00pm Pulse Pulse Rate (adult) 60 bpm (60 - 90) 11/14/2017 1:14pm Respiratory Rate 18 bpm (12 - 24) 11/14/2017 1:14pm Blood Pressure 165/74 mm Hg 11/14/2017 12:00pm Height 5 ft 10 in 01/01/2018 2:49pm Weight 258 lb 01/01/2018 2:49pm Body Mass Index 37.0 kg/m^2 01/01/2018 2:49pm Results Laboratory Results Test Name Result Units Flags Reference Collection Date/Time Result Date/ Time Comments Differential Total Cells Counted 100 11/14/2017 5:55am [...] Comment NORMAL 11/14/2017 5:55am 11/14/2017 12: 52pm Phosphorus Level 2.6 MG/DL 2.3-4.7 11/13/2017 1:33pm 11/13/2017 3:07pm Magnesium Level 1.4 MG/DL 1.3-2.1 11/13/2017 1:33pm 11/13/2017 3:07pm Lactate Dehydrogenase 225 IU/L H 125-220 11/14/2017 UNK 11/14/2017 3: 29pm Triglycerides Level 69 MG/DL 0-149 11/13/2017 6:00am [...] 1.52 ng/mL 0.8-2.0 11/13/2017 1:33pm 11/13/2017 4:29pm White Blood Count 8.31 x10e3/uL 4.8-10.8 01/01/2018 3:15pm 01/01/2018 3 :38pm Red Blood Count 2.81 x10e6/uL L 4.3-5.7 01/01/2018 3:15pm 01/01/2018 3: 38pm Hemoglobin 8.8 g/dL L 14.0-18.0 01/01/2018 3:15pm 01/01/2018 3:38pm Hematocrit 27.6 % L 38.2-49.6 01/01/2018 3:15pm 01/01/2018 3:38pm Mean Corpuscular Volume 98.2 fL 81-99 01/01/2018 3:15pm 01/01/2018 3: 38pm Mean Corpuscular Hemoglobin 31.3 pg 28-32 01/01/2018 3:15pm 01/01/2018 3:38pm Mean Corpuscular Hemoglobin Concent 31.9 g/dL 31-35 01/01/2018 3:15pm 01/01/2018 3:38pm Red Cell Distribution Width 12.9 % 11.7-14.4 01/01/2018 3:15pm 2017 3:38pm Platelet Count 94 x10e3/uL L 140-360 01/01/2018 3:15pm 01/01/2018 3: 38pm NO CLOT DETECTED Neutrophils (%) (Auto) 87.1 % H 38.7-80.0 01/01/2018 3:15pm 01/01/2018 3 :38pm Lymphocytes (%) (Auto) 4.9 % L 18.0-39.1 01/01/2018 3:15pm 01/01/2018 3: 38pm Monocytes (%) (Auto) 6.5 % 4.4-11.3 01/01/2018 3:15pm 01/01/2018 3: 38pm Eosinophils (%) (Auto) 0.4 % 0.0-6.0 01/01/2018 3:15pm 01/01/2018 3: 38pm Basophils (%) (Auto) 0.4 % 0.0-1.0 01/01/2018 3:15pm 01/01/2018 3:38pm IM GRANULOCYTES % 0.7 % 0.0-1.0 01/01/2018 3:15pm 01/01/2018 3:38pm Neutrophils # (Auto) 7.2 H 2.1-6.9 01/01/2018 3:15pm 01/01/2018 3: 38pm Lymphocytes # (Auto) 0.4 L 1.0-3.2 01/01/2018 3:15pm 01/01/2018 3: 38pm Monocytes # (Auto) 0.5 0.2-0.8 01/01/2018 3:15pm 01/01/2018 3:38pm Eosinophils # (Auto) 0.0 0.0-0.4 01/01/2018 3:15pm 01/01/2018 3:38pm Basophils # (Auto) 0.0 0.0-0.1 01/01/2018 3:15pm 01/01/2018 3:38pm Absolute Immature Granulocyte (auto 0.06 x10e3/uL 0-0.1 01/01/2018 3: 15pm 01/01/2018 3:38pm Prothrombin Time 22.9 seconds H 11.9-14.5 01/01/2018 3:15pm 01/01/2018 3 :50pm Prothromb Time International Ratio 2.19 01/01/2018 3:15pm 2017 3:50pm Oral Anticoagulant Therapy INR Values: 1. Low Intensity Therapy 1.5 - 2.0 2. Moderate Intensity Therapy 2.0 - 3.0 3. High Intensity Therapy(1) 2.5 - 3.5 4. High Intensity Therapy(2) 3.0 - 4.0 5. Panic Value INR > 5.0 Activated Partial Thromboplast Time 37.4 seconds H 23.8-35.5 01/01/2018 3 :15pm 01/01/2018 3:50pm Sodium Level 141 mmol/L 136-145 01/01/2018 3:15pm 01/01/2018 3:56pm Potassium Level 3.7 mmol/L 3.5-5.1 01/01/2018 3:15pm 01/01/2018 3:56pm Chloride Level 101 mmol/L 98-107 01/01/2018 3:15pm 01/01/2018 3:56pm Carbon Dioxide Level 30 mmol/L H 22-29 01/01/2018 3:15pm 01/01/2018 3: 56pm Anion Gap 13.7 mmol/L 8-16 01/01/2018 3:15pm 01/01/2018 3:56pm Blood Urea Nitrogen 12 mg/dL 7-01/01/2018 3:15pm 01/01/2018 3:56pm Creatinine 1.07 mg/dL 0.72-1.25 01/01/2018 3:15pm 01/01/2018 3:56pm BUN/Creatinine Ratio 11 6-01/01/2018 3:15pm 01/01/2018 3:56pm Estimat Glomerular Filtration Rate > 60 ML/MIN 60- 01/01/2018 3:15pm 3:56pm Ranges were taken from the National Kidney Disease Education Program and the National Kid[employer] Foundation literature. Reference ranges: 60 or greater: Normal 16-59 (for 3 consecutive months): Chronic kidney disease 15 or less: Kidney failure Glucose Level 66 mg/dL L 74-118 01/01/2018 3:15pm 01/01/2018 3:56pm Calcium Level 9.1 mg/dL 8.4-10.2 01/01/2018 3:15pm 01/01/2018 3:56pm Bedside Glucose 72 mg/dL 70-120 01/01/2018 3:19pm 01/01/2018 5:18pm Meter ID: [id number] Total Bilirubin 2.9 mg/dL H 0.2-1.2 01/01/2018 3:15pm 01/01/2018 3:56pm Aspartate Amino Transf (AST/SGOT) 69 IU/L H 5-34 01/01/2018 3:15pm 01/01 3:56pm Alanine Aminotransferase (ALT/SGPT) 25 IU/L 0-55 01/01/2018 3:15pm 12/2017 3:56pm Total Protein 5.7 g/dL L 6.5-8.1 01/01/2018 3:15pm 01/01/2018 3:56pm Albumin 3.3 g/dL L 3.5-5.0 01/01/2018 3:15pm 01/01/2018 3:56pm Globulin 2.4 g/dL 2.3-3.5 01/01/2018 3:15pm 01/01/2018 3:56pm Albumin/Globulin Ratio 1.4 0.8-2.0 01/01/2018 3:15pm 01/01/2018 3: 56pm Alkaline Phosphatase 106 IU/L 40-150 01/01/2018 3:15pm 01/01/2018 3: 56pm Procedures Procedure Status Date Provider(s) X-ray of chest, two views Active 11/13/17 LIU BRAGA MD Ultrasound, renal Active 11/13/[address] extremity lower w contrast Active 01/01/18 NEFTALI SIDDIQI MD Encounters Encounter Location Arrival/Admit Date Discharge/Depart Date Attending Provider Departed Emergency Room [facility] 01/01/18 2:44pm 6:41pm NEFTALI SIDDIQI MD Discharged Inpatient [facility] 11/12/17 8:12pm 11/14/17 5:46pm LIU BRAGA MD
== END 2018-03-29 13:21 | disposition home or self-care (01) | DRG 683 ==
LOC: ER 11:20 → ERHOLD 17:40 → MED/SURG 21:20
PROVIDERS: ADMIT Internal Medicine Pulmonary Disease; ATTEND Internal Medicine Pulmonary Disease
DX: I12.9 Hypertensive chronic kidney disease with stage 1 through stage 4 chronic kidney disease, or unspecified chronic kidney disease (principal); N13.8 Other obstructive and reflux uropathy; K92.1 Melena; D68.4 Acquired coagulation factor deficiency; Z68.42 Body mass index [BMI] 45.0-49.9, adult; N17.9 Acute kidney failure, unspecified; N13.0 Hydronephrosis with ureteropelvic junction obstruction; D68.318 Other hemorrhagic disorder due to intrinsic circulating anticoagulants, antibodies, or inhibitors; N18.9 Chronic kidney disease, unspecified; Z79.4 Long term (current) use of insulin; G47.33 Obstructive sleep apnea (adult) (pediatric); N40.0 Benign prostatic hyperplasia without lower urinary tract symptoms; Z79.01 Long term (current) use of anticoagulants; J45.909 Unspecified asthma, uncomplicated; D50.9 Iron deficiency anemia, unspecified; K80.80 Other cholelithiasis without obstruction; I48.2 Chronic atrial fibrillation; Z79.899 Other long term (current) drug therapy; E66.01 Morbid (severe) obesity due to excess calories; J44.9 Chronic obstructive pulmonary disease, unspecified; E11.65 Type 2 diabetes mellitus with hyperglycemia; K70.31 Alcoholic cirrhosis of liver with ascites; D69.6 Thrombocytopenia, unspecified; I27.20 Pulmonary hypertension, unspecified; R09.02 Hypoxemia; D63.1 Anemia in chronic kidney disease; R60.1 Generalized edema
CPT/HCPCS: 36415; 51700; 71046; 74176; 76604; 76770; 78215; 78708; 80048; 80053; 81001; 82140; 82270; 82550; 82553; 82570; 82607; 82746; 82948; 83036; 83540; 83735; 83880; 84100; 84156; 84439; 84443; 84466; 84484; 84550; 85025; 85610; 85730; 86039; 93005; 93306; 94660; 96372; 96376; 99285; A9541; A9562; J1100; J1200; J1756; J1940; J3430; J3480; J7040; J7050; J7799